=== PATIENT | male | born 1945 | race Caucasian/White ===

== ENCOUNTER 2019-06-23 20:46 | Inpatient (IN) | payer OTHER ==
[~2019-06-23] VITALS: Ht 180.3 cm; Wt 102.5 kg
[2019-06-23] MEDS ORDERED: IV NORMAL SALINE 1000ML BAG 1,000 ML IV ONE (21:00)
[2019-06-23 21:07] LABS: AMPHETAMINE/METHAMPHETAMINE NEG (NEG); BARBITURATES NEG (NEG); BENZODIAZEPINES NEG (NEG); CANNABINOIDS NEG (NEG); COCAINE NEG (NEG); METHADONE NEG (NEG); OPIATES NEG (NEG); PHENCYCLIDINE NEG (NEG)
[2019-06-23 21:13] LABS: BASO % 1 % (0-3); EOS % 1 % (0-3); HEMATOCRIT 39.3 % (39.0-53.0); HEMOGLOBIN 13.2 g/dL (13.0-17.5); LYMPH # 0.5 x10^3/uL (1.0-4.8); LYMPH % 7 % (24-48); MEAN CORPUSCULAR HEMOGLOBIN 30 pg (25-35); MEAN CORPUSCULAR HGB CONC 34 g/dL (31-37); MEAN CORPUSCULAR VOLUME 91 fL (79-100); MONO # 0.3 x10^3/uL (0.0-1.1); MONO % 4 % (0-9); NEUT # 6.3 x10^3/uL (1.8-7.7); NEUT % 88 % (31-73); PLATELET COUNT 191 x10^3/uL (140-400); RED BLOOD COUNT 4.34 x10^6/uL (4.30-5.70); RED CELL DISTRIBUTION WIDTH 14.3 % (11.5-14.5); WHITE BLOOD COUNT 7.1 x10^3/uL (4.0-11.0)
[2019-06-23 21:23] LABS: CALCIUM 9.4 mg/dL (8.5-10.1); CREATININE 1.5 mg/dL (0.7-1.3); GFR 45.7
[2019-06-23 21:29] LABS: ALBUMIN 4.3 g/dL (3.4-5.0); ALBUMIN/GLOBULIN RATIO 1.5 (1.0-1.7); TOTAL BILIRUBIN 0.5 mg/dL (0.2-1.0); TOTAL PROTEIN 7.1 g/dL (6.4-8.2)
--- NOTE | 2019-06-23 21:33 | PHYS DOC ---
Past Medical History Past Medical History: Anxiety, Depression Adult General Chief Complaint Chief Complaint: OVERDOSE HPI HPI Patient is a 73-year-old male who presents via EMS secondary to an intentional overdose. Patient took fifty 50 mg tablets of trazodone in an attempt to harm hi mself. He states he and his have been arguing a lot lately. EMS states that the patient vomited in route. Patient denies any other medication ingestion.[] Review of Systems Review of Systems Constitutional: Denies fever or chills [] Eyes: Denies change in visual acuity, redness, or eye pain [] HENT: Denies nasal congestion or sore throat [] Respiratory: Denies cough or shortness of breath [] Cardiovascular: No additional information not addressed in HPI [] GI: Per history of present illness[] : Denies dysuria or hematuria [] Musculoskeletal: Denies back pain or joint pain [] Integument: Denies rash or skin lesions [] Neurologic: Denies headache, focal weakness or sensory changes [] Endocrine: Denies polyuria or polydipsia [] All other systems were reviewed and found to be within normal limits, except as documented in this note. Current Medications Current Medications Current Medications Medications (Trade) Dose Ordered Sig/Moshe Start Time Stop Time Status Last Admin Dose Admin Sodium Chloride 1,000 ml @ 1,000 mls/hr 1X ONCE 06/23/19 21:00 06/23/19 21:59 06/23/19 21:10 1,000 MLS/HR Allergies Allergies Allergies Coded Allergies Type Severity Reaction Last Updated Verified No Known Drug Allergies 06/23/19 No Physical Exam Physical Exam Constitutional: Well developed, well nourished, disheveled and acutely ill, covered in vomitus. [] HENT: Normocephalic, atraumatic, bilateral external ears normal, oropharynx moist, no oral exudates, nose normal. [] Eyes: PERRLA, EOMI, conjunctiva normal, no discharge. [] Neck: Normal range of motion, no tenderness, supple, no stridor. [] Cardiovascular:Heart rate regular rhythm, no murmur [] Lungs & Thorax: Bilateral breath sounds clear to auscultation [] Abdomen: Bowel sounds normal, soft, no tenderness, no masses, no pulsatile masses. [] Skin: Warm, dry, no erythema, no rash. [] Back: No tenderness, no CVA tenderness. [] Extremities: No tenderness, no cyanosis, no clubbing, ROM intact, no edema. [] Neurologic: Alert and oriented X 3, normal motor function, normal sensory function, no focal deficits noted. [] Psychologic: Depressed. [] Current Patient Data Lab Values Laboratory Tests Test 06/23/19 20:50 06/23/19 21:00 Urine Opiates Screen Neg (NEG) Urine Methadone Screen Neg (NEG) Urine Barbiturates Neg (NEG) Urine Phencyclidine Screen Neg (NEG) Urine Amphetamine/Methamphetamine Neg (NEG) Urine Benzodiazepines Screen Neg (NEG) Urine Cocaine Screen Neg (NEG) Urine Cannabinoids Screen Neg (NEG) Urine Ethyl Alcohol Neg (NEG) Sodium Level 146 mmol/L (136-145) H Potassium Level 4.0 mmol/L (3.5-5.1) Chloride Level 108 mmol/L (98-107) H Carbon Dioxide Level 28 mmol/L (21-32) Anion Gap 10 (6-14) Blood Urea Nitrogen 20 mg/dL (8-26) Creatinine 1.5 mg/dL (0.7-1.3) H Estimated GFR (Cockcroft-Gault) 45.7 BUN/Creatinine Ratio 13 (6-20) Glucose Level 183 mg/dL (70-99) H Calcium Level 9.4 mg/dL (8.5-10.1) Magnesium Level 2.0 mg/dL (1.8-2.4) Total Bilirubin 0.5 mg/dL (0.2-1.0) Aspartate Amino Transferase (AST) 34 U/L (15-37) Alanine Aminotransferase (ALT) 32 U/L (16-63) Alkaline Phosphatase 42 U/L (46-116) L Total Protein 7.1 g/dL (6.4-8.2) Albumin 4.3 g/dL (3.4-5.0) Albumin/Globulin Ratio 1.5 (1.0-1.7) Lipase 711 U/L (73-393) H Ethyl Alcohol Level < 10 mg/dL (0-10) Laboratory Tests 06/23/19 21:00 EKG EKG [] Interpretation Time: EKG: Sinus arrhythmia no obvious ischemia rate of 90 Radiology/Procedures Radiology/Procedures [] Course & Med Decision Making Course & Med Decision Making Pertinent Labs and Imaging studies reviewed. (See chart for details) [ED course: Evaluation reveals a very ill 73-year-old male who took a large quantity of trazodone. Patient was given IV fluids EKG initially did not show prolonged QT we will admit to the ICU for close observation.] Dragon Disclaimer Dragon Disclaimer This electronic medical record was generated, in whole or in part, using a voice recognition dictation system. Departure Departure Impression: Primary Impression: Overdose of drug Disposition: 09 ADMITTED INPATIENT Admitting Physician: FRANCINE Condition: GUARDED Referrals: SHEREE HUMPHRIES (PCP) Problem Qualifiers Primary Impression: Overdose of drug Encounter type: initial encounter Injury intent: intentional self-harm Qualified Codes: T50.902A - Poisoning by unspecified drugs, medicaments and biological substances, intentional self-harm, initial encounter CARROL ARTEAGA DO Jun 23, 2019 21:33
[2019-06-23] MEDS ORDERED: ONDANSETRON PF 4 MG/2 ML VIAL. IV PRN (21:45)
[2019-06-23 22:00] LABS: % BANDS 1 % (0-9); % EOS 1 % (0-5); % LYMPHS 8 % (24-48); % MONOS 6 % (0-10); % SEGS 84 % (35-66); PLT ESTIMATE ADEQUATE (ADEQUATE)
[2019-06-23] MEDS: IV NORMAL SALINE 1000ML BAG 1,000 ML IV SCH (22:10)
[2019-06-23 23:45] VITALS: BP 130/64
--- NOTE | 2019-06-23 23:45 | NUR ---
The patient, FANTASMA STEPHENS, 73 y/o, M admitted by BRANDO MORIN III, DO, was given written information regarding hospital policies, unit procedures and contact persons. Valuables were checked and left with the RN. Pt is calm and resting comfortably. Will continue to monitor
[2019-06-24] VITALS (17 sets, daily range): BP systolic 93–166; BP diastolic 46–86
[2019-06-24] MEDS ORDERED: TRAZ-118 PO ×2 (01:28→01:29)
[2019-06-24] MEDS: IV NORMAL SALINE 1000ML BAG 1,000 ML IV SCH ×3 (04:17→17:17)
[2019-06-24 05:28] LABS: BASO % 1 % (0-3); EOS % 0 % (0-3); HEMATOCRIT 36.3 % (39.0-53.0); HEMOGLOBIN 12.1 g/dL (13.0-17.5); LYMPH # 0.9 x10^3/uL (1.0-4.8); LYMPH % 14 % (24-48); MEAN CORPUSCULAR HEMOGLOBIN 30 pg (25-35); MEAN CORPUSCULAR HGB CONC 33 g/dL (31-37); MEAN CORPUSCULAR VOLUME 91 fL (79-100); MONO # 0.5 x10^3/uL (0.0-1.1); MONO % 7 % (0-9); NEUT # 5.3 x10^3/uL (1.8-7.7); NEUT % 78 % (31-73); PLATELET COUNT 189 x10^3/uL (140-400); RED BLOOD COUNT 4.01 x10^6/uL (4.30-5.70); RED CELL DISTRIBUTION WIDTH 14.4 % (11.5-14.5); WHITE BLOOD COUNT 6.7 x10^3/uL (4.0-11.0)
[2019-06-24 05:34] LABS: ALBUMIN 3.2 g/dL (3.4-5.0); ALBUMIN/GLOBULIN RATIO 1.4 (1.0-1.7); CALCIUM 8.2 mg/dL (8.5-10.1); CREATININE 1.4 mg/dL (0.7-1.3); GFR 49.5; POTASSIUM 3.9 mmol/L (3.5-5.1); TOTAL BILIRUBIN 0.5 mg/dL (0.2-1.0); TOTAL PROTEIN 5.5 g/dL (6.4-8.2)
--- NOTE | 2019-06-24 06:22 | EKG ---
[facility] [address] [place] [address] Test Date: 2019-06-23 Test Time: 21:04:53 Pat Name: FANTASMA STEPHENS Department: Room: 108 1 Gender: M Rn Women Services: : 1945 Requested By: CARROL ARTEAGA Order Number: [id number] Reading MD: Michael Yi MD Measurements Intervals [place] Rate: 91 P: AR: QRS: 30 QRSD: 96 T: 18 QT: 406 QTc: 501 Interpretive Statements ATRIAL FIBRILLATION WITH CONTROLLED VENTRICULAR RESPONSE NON-SPECIFIC ST/T CHANGES Electronically Signed On 06-30-2019 11:36:24 CDT by Michael Yi MD
[2019-06-24] MEDS: LIDOCAINE (700MG/PATCH) PATCH. TD SCH (08:58)
--- NOTE | 2019-06-24 09:01 | EKG ---
[facility] [address] [place] [address] Test Date: 2019-06-24 Test Time: 08:48:20 Pat Name: FANTASMA STEPHENS Department: Room: 108 1 Gender: M Bus Monitor: : 1945 Requested By: CARROL ARTEAGA Order Number: [id number] Reading MD: Michael Yi MD Measurements Intervals [place] Rate: 63 P: 66 RI: 210 QRS: 41 QRSD: 94 T: 0 QT: 446 QTc: 460 Interpretive Statements SINUS RHYTHM Electronically Signed On 06-30-2019 11:38:02 CDT by Michael Yi MD
[2019-06-24 13:19] LABS: FREE T4 0.67 ng/dL (0.76-1.46); THYROID STIM HORMONE (TSH) 0.726 uIU/mL (0.358-3.74)
--- NOTE | 2019-06-24 13:26 | HP ---
ADMIT DATE: 06/23/2019 CHIEF COMPLAINT: Overdose. HISTORY OF PRESENT ILLNESS: The patient is a pleasant 73-year-old male, who was arguing with his . Then, he took a bottle of trazodone in an attempt to harm himself. I discussed the case with ER physician. We admitted the patient to the ICU. He is now starting to wake up. We are going to have the PAT team to evaluate him. We suspect he will go to the psychiatric inpatient unit tomorrow if he is stable. PAST MEDICAL HISTORY: Depression and anxiety and his thinks he may have dementia, although not sure. ALLERGIES: None. FAMILY HISTORY: Diabetes. SOCIAL HISTORY: He is retired. He does not drink, smoke or take drugs. He is . MEDICATIONS: Reviewed, please refer to the MRAD. REVIEW OF SYSTEMS: GENERAL: No history of weight change, weakness or fevers. SKIN: No bruising, hair changes or rashes. EYES: No blurred, double or loss of vision. NOSE AND THROAT: No history of nosebleeds, hoarseness or sore throat. HEART: No history of palpitations, chest pain or shortness of breath on exertion. LUNGS: Denies cough, hemoptysis, wheezing or shortness of breath. GASTROINTESTINAL: Denies changes in appetite, nausea, vomiting, diarrhea or constipation. GENITOURINARY: No history of frequency, urgency, hesitancy or nocturia. NEUROLOGIC: Denies history of numbness, tingling, tremor or weakness. PSYCHIATRIC: No history of panic, anxiety or depression. ENDOCRINE: No history of heat or cold intolerance, polyuria or polydipsia. EXTREMITIES: Denies muscle weakness, joint pain, pain on walking or stiffness. PHYSICAL EXAMINATION: VITALS: Within normal limits and are stable. GENERAL: No apparent distress. Alert and oriented. HEENT: Head is normocephalic, atraumatic, pupils were equally round and reactive to light and accommodation. NECK: Supple, no JVD, no thyromegaly was noted. LUNGS: Clear to auscultation in all lung herrera without rhonchi or wheezing. HEART: RRR, S1, S2 present. Peripheral pulses intact, no obvious murmurs were noted. ABDOMEN: Soft, nontender. Positive bowel sounds no organomegaly, normal bowel sounds. EXTREMITIES: Without any cyanosis, clubbing, or edema. Pedal pulses intact, Homans sign is negative. NEUROLOGIC: Normal speech, normal tone. A & O x3, moves all extremities, no obvious focal deficits. PSYCHIATRIC: Normal affect, normal mood. Stable. SKIN: No ulcerations or rashes, good skin turgor, no jaundice. VASCULAR: Good capillary refill, neurovascular bundle appears to be intact. LABORATORY DATA: Hematology is normal. Electrolytes: Sodium 146, potassium 3.9, chloride 112, and glucose 111. ASSESSMENT AND PLAN: Ingestion secondary to suicide attempt. The patient has been admitted. We are following him closely in the Intensive Care Unit. The half-life of trazodone is about 10 hours, so we will take about 50 hours to get 97% out of blood stream. Continue other home medicines. Psychiatric assessment team evaluation. DVT prophylaxis. Full code. BRANDO MORIN DO DR: BABAR/shimon JOB#: [id number] / [id number]
[2019-06-24] MEDS ORDERED: METO-269 PO (15:29)
--- NOTE | 2019-06-24 15:31 | PDOC2 ---
NEUROLOGY CONSULT Date of Admission Date of Admission DATE: 06/24/19 TIME: 15:17 Reason for Consult Reason for Consult: IMPRESSION: Drug overdose. Metabolic encephalopathy. Memory loss. DM? HTN. Hypotension events. Dementia? Depression? Anxiety. Obesity. RECOMMENDATIONS/PLAN: Lift support in ICU. Detoxication treatment. EEG. Lab: see orders. Discussed with his at bedside in ICU on 06/24/19. HISTORY OF THE PRESENT ILLNESS: Patient is a 73-year-old male patient with some psychiatric problems was brought to the ER of [facility] by EMS secondary to an intentional overdose. EMS stated that the patient vomited in route. Per ER documentation, he took fifty 50 mg tablets of Trazodone as an attempt to harm himself. Patient denies any other medication ingestion.He stated he and his have been arguing a lot lately. His suspect that he may have dementia. PAST MEDICAL HISTORY: Depression and anxiety. Questionable dementia. PAST SURGERY HISTORY: No major surgery recently. ALLERGIES: NKDA FAMILY HISTORY: Diabetes. MEDICATIONS: Refer to [facility] SOCIAL HISTORY: Lives at home. Denies smoking, drinking, and illicit drug use. REVIEW OF SYSTEMS: Constitutional: No malnutrition, weight loss, cachexia. Head: No traumatic brain or head injury. Skin: No edema, or rash. Ear: No infection. Eyes: No vision loss or color blindness. Nose: No bleeding or purulent discharges. Hearing: Hearing decrease. Neck: No injury. Cardiac: HTN. Pulmonary: No COPD. GI: No GI ulcer, GI bleeding. Urinary/genital: No dysuria, incontinence, urinary retention. Endocrinologic: Obesity. Skeletomuscular: No muscular atrophy. Neurological: see HP. Psychiatric: Denies drug use/abuse. Otherwise, not [id number] review of systems. PHYSICAL EXAMINATION: General appearance is in subacute distress. HEENT: Normocephalic and nontraumatic. Eyes, nose, ears, and throat are unremarkable. Neck is supple. No lymphadenopathy. No crepitus. Cardiovascular: S1, S2, regular rate and rhythm. Pulmonary: Relative clear to auscultation bilaterally. Abdomen: Bowel sounds are positive. Extremities: No rash, lesions, or edema. No restriction of range of motion NEUROLOGICAL EXAMINATION: Drowsiness. Not fully oriented to time, but knew place and person. PERRL. EOMI. CN: no focal findings. Muscle tone: within normal. Muscle strength: 5- DTR: 1-2 Plantar reflex: Neutral response bilaterally Gait: not examined in bed. Sensory exam: no abnormal findings. No acute cerebellar signs elicited. F-T-N test fine. Current Medications Current Medications Current Medications Sodium Chloride 1,000 ml @ 1,000 mls/hr 1X ONCE IV Last administered on 06/23/19at 21:10; Start 06/23/19 at 21:00; Stop 06/23/19 at 21:59; Status DC Ondansetron HCl (Zofran) 4 mg PRN Q8HRS PRN IV NAUSEA/VOMITING; Start 06/23/19 at 21:45; Stop 06/24/19 at 21:44 Sodium Chloride 1,000 ml @ 150 mls/hr Q6H40M IV Last administered on 06/24/19at 10:59; Start 06/23/19 at 21:45; Stop 06/24/19 at 21:44 Lidocaine (Lidoderm) 1 patch DAILY TD Last administered on 06/24/19at 08:58; Start 06/24/19 at 09:00 Miscellaneous (Lidoderm Patch Removal) 1 ea QHS MC ; Start 06/24/19 at 21:00 Active Scripts Active Reported Trazodone Hcl 50 Mg Tablet 100 Mg PO HS PRN 30 Days Trazodone Hcl 50 Mg Tablet 50 Mg PO HS PRN 30 Days Allergies Allergies: Allergies Coded Allergies Type Severity Reaction Last Updated Verified No Known Drug Allergies 06/23/19 No ROS Review of System The patient denies any associated fevers, chills, headache, ear pain, rhinorrhea, sore throat, stiff neck, productive cough, chest pain, shortness of breath, back or flank pain, abdominal pain, nausea, vomiting, diarrhea, constipation, dysuria, rash, numbness, weakness, tingling, incontinence, difficulty ambulating, or diaphoresis. Physical Exam Physical Exam General: Well developed, well nourished, no acute distress, well appearing HEENT: Pupils equally round and reactive to light, EOMI, no discharge, normal conjunctiva Neck: Supple, no nuchal rigidity, no JVD, trachea midline, no tenderness Cardiac: RRR, no murmurs, no gallops, no rubs Chest/Lungs: CTAB, no wheeze, no rhonchi, no crackles Abdomen: soft, non-distended, no guarding, no peritoneal signs, non-tender Back: No tenderness Extremities: no edema, pulses intact, non-tender,capillary refill <3 sec bilateral upper and lower extremities, Neuro: Alert and oriented x 4, no focal deficits, normal speech Vitals Vitals: Vital Signs Date Time Temp Pulse Resp B/P (MAP) Pulse Ox O2 Delivery O2 Flow Rate FiO2 06/24/19 14:00 57 20 166/80 (108) 95 Room Air 06/24/19 12:00 98.0 98.0 Labs Labs Laboratory Tests Test 06/23/19 20:50 06/23/19 21:00 06/24/19 05:00 Urine Opiates Screen Neg (NEG) Urine Methadone Screen Neg (NEG) Urine Barbiturates Neg (NEG) Urine Phencyclidine Screen Neg (NEG) Urine Amphetamine/Methamphetamine Neg (NEG) Urine Benzodiazepines Screen Neg (NEG) Urine Cocaine Screen Neg (NEG) Urine Cannabinoids Screen Neg (NEG) Urine Ethyl Alcohol Neg (NEG) White Blood Count 7.1 x10^3/uL (4.0-11.0) 6.7 x10^3/uL (4.0-11.0) Red Blood Count 4.34 x10^6/uL (4.30-5.70) 4.01 x10^6/uL (4.30-5.70) Hemoglobin 13.2 g/dL (13.0-17.5) 12.1 g/dL (13.0-17.5) Hematocrit 39.3 % (39.0-53.0) 36.3 % (39.0-53.0) Mean Corpuscular Volume 91 fL (79-100) 91 fL (79-100) Mean Corpuscular Hemoglobin 30 pg (25-35) 30 pg (25-35) Mean Corpuscular Hemoglobin Concent 34 g/dL (31-37) 33 g/dL (31-37) Red Cell Distribution Width 14.3 % (11.5-14.5) 14.4 % (11.5-14.5) Platelet Count 191 x10^3/uL (140-400) 189 x10^3/uL (140-400) Neutrophils (%) (Auto) 88 % (31-73) 78 % (31-73) Lymphocytes (%) (Auto) 7 % (24-48) 14 % (24-48) Monocytes (%) (Auto) 4 % (0-9) 7 % (0-9) Eosinophils (%) (Auto) 1 % (0-3) 0 % (0-3) Basophils (%) (Auto) 1 % (0-3) 1 % (0-3) Neutrophils # (Auto) 6.3 x10^3/uL (1.8-7.7) 5.3 x10^3/uL (1.8-7.7) Lymphocytes # (Auto) 0.5 x10^3/uL (1.0-4.8) 0.9 x10^3/uL (1.0-4.8) Monocytes # (Auto) 0.3 x10^3/uL (0.0-1.1) 0.5 x10^3/uL (0.0-1.1) Eosinophils # (Auto) 0.0 x10^3/uL (0.0-0.7) 0.0 x10^3/uL (0.0-0.7) Basophils # (Auto) 0.0 x10^3/uL (0.0-0.2) 0.0 x10^3/uL (0.0-0.2) Segmented Neutrophils % 84 % (35-66) Band Neutrophils % 1 % (0-9) Lymphocytes % 8 % (24-48) Monocytes % 6 % (0-10) Eosinophils % 1 % (0-5) Platelet Estimate Adequate (ADEQUATE) Sodium Level 146 mmol/L (136-145) 146 mmol/L (136-145) Potassium Level 4.0 mmol/L (3.5-5.1) 3.9 mmol/L (3.5-5.1) Chloride Level 108 mmol/L (98-107) 112 mmol/L (98-107) Carbon Dioxide Level 28 mmol/L (21-32) 26 mmol/L (21-32) Anion Gap 10 (6-14) 8 (6-14) Blood Urea Nitrogen 20 mg/dL (8-26) 16 mg/dL (8-26) Creatinine 1.5 mg/dL (0.7-1.3) 1.4 mg/dL (0.7-1.3) Estimated GFR (Cockcroft-Gault) 45.7 49.5 BUN/Creatinine Ratio 13 (6-20) 11 (6-20) Glucose Level 183 mg/dL (70-99) 111 mg/dL (70-99) Calcium Level 9.4 mg/dL (8.5-10.1) 8.2 mg/dL (8.5-10.1) Magnesium Level 2.0 mg/dL (1.8-2.4) Total Bilirubin 0.5 mg/dL (0.2-1.0) 0.5 mg/dL (0.2-1.0) Aspartate Amino Transf (AST/SGOT) 34 U/L (15-37) 25 U/L (15-37) Alanine Aminotransferase (ALT/SGPT) 32 U/L (16-63) 24 U/L (16-63) Alkaline Phosphatase 42 U/L (46-116) 36 U/L (46-116) Total Protein 7.1 g/dL (6.4-8.2) 5.5 g/dL (6.4-8.2) Albumin 4.3 g/dL (3.4-5.0) 3.2 g/dL (3.4-5.0) Albumin/Globulin Ratio 1.5 (1.0-1.7) 1.4 (1.0-1.7) Lipase 711 U/L (73-393) Ethyl Alcohol Level < 10 mg/dL (0-10) Thyroid Stimulating Hormone (TSH) 0.726 uIU/mL (0.358-3.74) Free Thyroxine 0.67 ng/dL (0.76-1.46) Laboratory Tests Test 06/23/19 20:50 06/23/19 21:00 06/24/19 05:00 Urine Opiates Screen Neg (NEG) Urine Methadone Screen Neg (NEG) Urine Barbiturates Neg (NEG) Urine Phencyclidine Screen Neg (NEG) Urine Amphetamine/Methamphetamine Neg (NEG) Urine Benzodiazepines Screen Neg (NEG) Urine Cocaine Screen Neg (NEG) Urine Cannabinoids Screen Neg (NEG) Urine Ethyl Alcohol Neg (NEG) White Blood Count 7.1 x10^3/uL (4.0-11.0) 6.7 x10^3/uL (4.0-11.0) Red Blood Count 4.34 x10^6/uL (4.30-5.70) 4.01 x10^6/uL (4.30-5.70) Hemoglobin 13.2 g/dL (13.0-17.5) 12.1 g/dL (13.0-17.5) Hematocrit 39.3 % (39.0-53.0) 36.3 % (39.0-53.0) Mean Corpuscular Volume 91 fL (79-100) 91 fL (79-100) Mean Corpuscular Hemoglobin 30 pg (25-35) 30 pg (25-35) Mean Corpuscular Hemoglobin Concent 34 g/dL (31-37) 33 g/dL (31-37) Red Cell Distribution Width 14.3 % (11.5-14.5) 14.4 % (11.5-14.5) Platelet Count 191 x10^3/uL (140-400) 189 x10^3/uL (140-400) Neutrophils (%) (Auto) 88 % (31-73) 78 % (31-73) Lymphocytes (%) (Auto) 7 % (24-48) 14 % (24-48) Monocytes (%) (Auto) 4 % (0-9) 7 % (0-9) Eosinophils (%) (Auto) 1 % (0-3) 0 % (0-3) Basophils (%) (Auto) 1 % (0-3) 1 % (0-3) Neutrophils # (Auto) 6.3 x10^3/uL (1.8-7.7) 5.3 x10^3/uL (1.8-7.7) Lymphocytes # (Auto) 0.5 x10^3/uL (1.0-4.8) 0.9 x10^3/uL (1.0-4.8) Monocytes # (Auto) 0.3 x10^3/uL (0.0-1.1) 0.5 x10^3/uL (0.0-1.1) Eosinophils # (Auto) 0.0 x10^3/uL (0.0-0.7) 0.0 x10^3/uL (0.0-0.7) Basophils # (Auto) 0.0 x10^3/uL (0.0-0.2) 0.0 x10^3/uL (0.0-0.2) Segmented Neutrophils % 84 % (35-66) Band Neutrophils % 1 % (0-9) Lymphocytes % 8 % (24-48) Monocytes % 6 % (0-10) Eosinophils % 1 % (0-5) Platelet Estimate Adequate (ADEQUATE) Sodium Level 146 mmol/L (136-145) 146 mmol/L (136-145) Potassium Level 4.0 mmol/L (3.5-5.1) 3.9 mmol/L (3.5-5.1) Chloride Level 108 mmol/L (98-107) 112 mmol/L (98-107) Carbon Dioxide Level 28 mmol/L (21-32) 26 mmol/L (21-32) Anion Gap 10 (6-14) 8 (6-14) Blood Urea Nitrogen 20 mg/dL (8-26) 16 mg/dL (8-26) Creatinine 1.5 mg/dL (0.7-1.3) 1.4 mg/dL (0.7-1.3) Estimated GFR (Cockcroft-Gault) 45.7 49.5 BUN/Creatinine Ratio 13 (6-20) 11 (6-20) Glucose Level 183 mg/dL (70-99) 111 mg/dL (70-99) Calcium Level 9.4 mg/dL (8.5-10.1) 8.2 mg/dL (8.5-10.1) Magnesium Level 2.0 mg/dL (1.8-2.4) Total Bilirubin 0.5 mg/dL (0.2-1.0) 0.5 mg/dL (0.2-1.0) Aspartate Amino Transf (AST/SGOT) 34 U/L (15-37) 25 U/L (15-37) Alanine Aminotransferase (ALT/SGPT) 32 U/L (16-63) 24 U/L (16-63) Alkaline Phosphatase 42 U/L (46-116) 36 U/L (46-116) Total Protein 7.1 g/dL (6.4-8.2) 5.5 g/dL (6.4-8.2) Albumin 4.3 g/dL (3.4-5.0) 3.2 g/dL (3.4-5.0) Albumin/Globulin Ratio 1.5 (1.0-1.7) 1.4 (1.0-1.7) Lipase 711 U/L (73-393) Ethyl Alcohol Level < 10 mg/dL (0-10) Thyroid Stimulating Hormone (TSH) 0.726 uIU/mL (0.358-3.74) Free Thyroxine 0.67 ng/dL (0.76-1.46) JAMIE GRIMALDO MD Jun 24, 2019 15:31
[2019-06-24] MEDS ORDERED: ATOR40TA59 PO (15:35)
[2019-06-24] MEDS ORDERED: TAMS0.4C97 PO (15:35)
[2019-06-24] MEDS ORDERED: FENO145T30 PO (15:37)
--- NOTE | 2019-06-24 16:23 | RAD ---
PQRS Compliance Statement: One or more of the following individualized dose reduction techniques were utilized for this examination: 1. Automated exposure control 2. Adjustment of the mA and/or kV according to patient size 3. Use of iterative reconstruction technique CT head without contrast 06/24/2019 3:16 PM INDICATION: Memory loss COMPARISON: None available TECHNIQUE: Multiple axial CT images of the head were obtained from skull base through the vertex without intravenous contrast. FINDINGS: Head: Ventricles, sulci and basal cisterns are within normal limits. Low-attenuation in the periventricular white matter is suggestive of chronic small vessel ischemic changes. Remote lacunar infarct in the left putamen. There is no hydrocephalus. Nathan-white matter differentiation is normal. There is no acute intracranial hemorrhage. There is no mass, mass effect or midline shift. Posterior fossa is normal in appearance. Visualized portions of the orbits are normal. Paranasal sinuses are well aerated. Mastoid air cells are well aerated. Scalp and calvaria are normal. IMPRESSION: No acute intracranial hemorrhage. Low-attenuation in the periventricular white matter is suggestive of chronic small vessel ischemic changes. There is a remote lacunar infarct in the left putamen measuring 7 mm. Electronically signed by: Shy Smith MD (06/24/2019 4:21 PM) [facility]
[2019-06-24] MEDS: PATCH REMOVAL. MC SCH (21:36)
[2019-06-25 03:42] VITALS: BP 126/60
[2019-06-25 05:06] LABS: BASO % 1 % (0-3); EOS # 0.1 x10^3/uL (0.0-0.7); EOS % 2 % (0-3); HEMATOCRIT 35.5 % (39.0-53.0); HEMOGLOBIN 11.9 g/dL (13.0-17.5); LYMPH # 1.4 x10^3/uL (1.0-4.8); LYMPH % 27 % (24-48); MEAN CORPUSCULAR HEMOGLOBIN 31 pg (25-35); MEAN CORPUSCULAR HGB CONC 34 g/dL (31-37); MEAN CORPUSCULAR VOLUME 91 fL (79-100); MONO # 0.4 x10^3/uL (0.0-1.1); MONO % 8 % (0-9); NEUT # 3.1 x10^3/uL (1.8-7.7); NEUT % 62 % (31-73); PLATELET COUNT 170 x10^3/uL (140-400); RED CELL DISTRIBUTION WIDTH 14.6 % (11.5-14.5)
[2019-06-25 05:25] LABS: ALBUMIN 3.1 g/dL (3.4-5.0); ALBUMIN/GLOBULIN RATIO 1.3 (1.0-1.7); CALCIUM 8.5 mg/dL (8.5-10.1); CREATININE 1.5 mg/dL (0.7-1.3); GFR 45.7; POTASSIUM 3.7 mmol/L (3.5-5.1); TOTAL BILIRUBIN 0.3 mg/dL (0.2-1.0); TOTAL PROTEIN 5.4 g/dL (6.4-8.2)
[2019-06-25 07:00] VITALS: BP 92/74
--- NOTE | 2019-06-25 08:24 | PDOC ---
PROGRESS NOTES History of Present Illness History of Present Illness ASSESSMENT Ingestion //suicide attempt. took fifty 50 mg tablets of Trazodone as an attempt to harm himself. // he may have dementia. Acute toxic metabiloic encephalopathy bradycardia morbid obesity major depression EEG is a borderline study for the awake, drowsy, and sleep states. No focal, lateralizing, specific epileptiform discharge or electrographic seizure is seen. admitted. home medicines. Psychiatric assessment team evaluation. DVT prophylaxis. Full code. tele cardiology consult hold BB TTE TSH placement needed PT/OT 37 min pt exam, chart review, > 50% of time spent with exam, chart review, pt care coordination Vitals Vitals Vital Signs Date Time Temp Pulse Resp B/P (MAP) Pulse Ox O2 Delivery O2 Flow Rate FiO2 06/25/19 07:00 97.6 51 18 92/74 (80) 96 Room Air 97.6 Physical Exam Physical Exam NECK: Supple, no JVD, no thyromegaly was noted. LUNGS: Clear to auscultation in all lung herrera without rhonchi or wheezing. HEART: RRR, S1, S2 present. Peripheral pulses intact, no obvious murmurs were noted. ABDOMEN: Soft, nontender. Positive bowel sounds no organomegaly, normal bowel sounds. EXTREMITIES: Without any cyanosis, clubbing, or edema. Pedal pulses intact, Homans sign is negative. NEUROLOGIC: Normal speech, normal tone. A & O x3, moves all extremities, no obvious focal deficits. PSYCHIATRIC: Normal affect, normal mood. Stable. SKIN: No ulcerations or rashes, good skin turgor, no jaundice. VASCULAR: Good capillary refill, neurovascular bundle appears to be intact. General: Alert, Oriented X3, Cooperative, No acute distress Heart: Regular rate, Normal S1 Lungs: Clear Abdomen: Normal bowel sounds, Soft, No tenderness Extremities: No cyanosis Skin: No rashes Labs LABS Laboratory Tests Test 06/25/19 03:40 White Blood Count 5.0 x10^3/uL (4.0-11.0) Red Blood Count 3.90 x10^6/uL (4.30-5.70) Hemoglobin 11.9 g/dL (13.0-17.5) Hematocrit 35.5 % (39.0-53.0) Mean Corpuscular Volume 91 fL (79-100) Mean Corpuscular Hemoglobin 31 pg (25-35) Mean Corpuscular Hemoglobin Concent 34 g/dL (31-37) Red Cell Distribution Width 14.6 % (11.5-14.5) Platelet Count 170 x10^3/uL (140-400) Neutrophils (%) (Auto) 62 % (31-73) Lymphocytes (%) (Auto) 27 % (24-48) Monocytes (%) (Auto) 8 % (0-9) Eosinophils (%) (Auto) 2 % (0-3) Basophils (%) (Auto) 1 % (0-3) Neutrophils # (Auto) 3.1 x10^3/uL (1.8-7.7) Lymphocytes # (Auto) 1.4 x10^3/uL (1.0-4.8) Monocytes # (Auto) 0.4 x10^3/uL (0.0-1.1) Eosinophils # (Auto) 0.1 x10^3/uL (0.0-0.7) Basophils # (Auto) 0.0 x10^3/uL (0.0-0.2) Sodium Level 147 mmol/L (136-145) Potassium Level 3.7 mmol/L (3.5-5.1) Chloride Level 114 mmol/L (98-107) Carbon Dioxide Level 25 mmol/L (21-32) Anion Gap 8 (6-14) Blood Urea Nitrogen 15 mg/dL (8-26) Creatinine 1.5 mg/dL (0.7-1.3) Estimated GFR (Cockcroft-Gault) 45.7 BUN/Creatinine Ratio 10 (6-20) Glucose Level 97 mg/dL (70-99) Calcium Level 8.5 mg/dL (8.5-10.1) Total Bilirubin 0.3 mg/dL (0.2-1.0) Aspartate Amino Transf (AST/SGOT) 23 U/L (15-37) Alanine Aminotransferase (ALT/SGPT) 26 U/L (16-63) Alkaline Phosphatase 33 U/L (46-116) Total Protein 5.4 g/dL (6.4-8.2) Albumin 3.1 g/dL (3.4-5.0) Albumin/Globulin Ratio 1.3 (1.0-1.7) Assessment and Plan Assessmemt and Plan Problems Medical Problems: (1) Overdose of drug Status: Acute Comment Review of Relevant I have reviewed the following items zachery (where applicable) has been applied. Labs Laboratory Tests Test 06/23/19 20:50 06/23/19 21:00 06/24/19 05:00 06/25/19 03:40 Urine Opiates Screen Neg (NEG) Urine Methadone Screen Neg (NEG) Urine Barbiturates Neg (NEG) Urine Phencyclidine Screen Neg (NEG) Urine Amphetamine/Methamphetamine Neg (NEG) Urine Benzodiazepines Screen Neg (NEG) Urine Cocaine Screen Neg (NEG) Urine Cannabinoids Screen Neg (NEG) Urine Ethyl Alcohol Neg (NEG) White Blood Count 7.1 x10^3/uL (4.0-11.0) 6.7 x10^3/uL (4.0-11.0) 5.0 x10^3/uL (4.0-11.0) Red Blood Count 4.34 x10^6/uL (4.30-5.70) 4.01 x10^6/uL (4.30-5.70) 3.90 x10^6/uL (4.30-5.70) Hemoglobin 13.2 g/dL (13.0-17.5) 12.1 g/dL (13.0-17.5) 11.9 g/dL (13.0-17.5) Hematocrit 39.3 % (39.0-53.0) 36.3 % (39.0-53.0) 35.5 % (39.0-53.0) Mean Corpuscular Volume 91 fL (79-100) 91 fL (79-100) 91 fL (79-100) Mean Corpuscular Hemoglobin 30 pg (25-35) 30 pg (25-35) 31 pg (25-35) Mean Corpuscular Hemoglobin Concent 34 g/dL (31-37) 33 g/dL (31-37) 34 g/dL (31-37) Red Cell Distribution Width 14.3 % (11.5-14.5) 14.4 % (11.5-14.5) 14.6 % (11.5-14.5) Platelet Count 191 x10^3/uL (140-400) 189 x10^3/uL (140-400) 170 x10^3/uL (140-400) Neutrophils (%) (Auto) 88 % (31-73) 78 % (31-73) 62 % (31-73) Lymphocytes (%) (Auto) 7 % (24-48) 14 % (24-48) 27 % (24-48) Monocytes (%) (Auto) 4 % (0-9) 7 % (0-9) 8 % (0-9) Eosinophils (%) (Auto) 1 % (0-3) 0 % (0-3) 2 % (0-3) Basophils (%) (Auto) 1 % (0-3) 1 % (0-3) 1 % (0-3) Neutrophils # (Auto) 6.3 x10^3/uL (1.8-7.7) 5.3 x10^3/uL (1.8-7.7) 3.1 x10^3/uL (1.8-7.7) Lymphocytes # (Auto) 0.5 x10^3/uL (1.0-4.8) 0.9 x10^3/uL (1.0-4.8) 1.4 x10^3/uL (1.0-4.8) Monocytes # (Auto) 0.3 x10^3/uL (0.0-1.1) 0.5 x10^3/uL (0.0-1.1) 0.4 x10^3/uL (0.0-1.1) Eosinophils # (Auto) 0.0 x10^3/uL (0.0-0.7) 0.0 x10^3/uL (0.0-0.7) 0.1 x10^3/uL (0.0-0.7) Basophils # (Auto) 0.0 x10^3/uL (0.0-0.2) 0.0 x10^3/uL (0.0-0.2) 0.0 x10^3/uL (0.0-0.2) Segmented Neutrophils % 84 % (35-66) Band Neutrophils % 1 % (0-9) Lymphocytes % 8 % (24-48) Monocytes % 6 % (0-10) Eosinophils % 1 % (0-5) Platelet Estimate Adequate (ADEQUATE) Sodium Level 146 mmol/L (136-145) 146 mmol/L (136-145) 147 mmol/L (136-145) Potassium Level 4.0 mmol/L (3.5-5.1) 3.9 mmol/L (3.5-5.1) 3.7 mmol/L (3.5-5.1) Chloride Level 108 mmol/L (98-107) 112 mmol/L (98-107) 114 mmol/L (98-107) Carbon Dioxide Level 28 mmol/L (21-32) 26 mmol/L (21-32) 25 mmol/L (21-32) Anion Gap 10 (6-14) 8 (6-14) 8 (6-14) Blood Urea Nitrogen 20 mg/dL (8-26) 16 mg/dL (8-26) 15 mg/dL (8-26) Creatinine 1.5 mg/dL (0.7-1.3) 1.4 mg/dL (0.7-1.3) 1.5 mg/dL (0.7-1.3) Estimated GFR (Cockcroft-Gault) 45.7 49.5 45.7 BUN/Creatinine Ratio 13 (6-20) 11 (6-20) 10 (6-20) Glucose Level 183 mg/dL (70-99) 111 mg/dL (70-99) 97 mg/dL (70-99) Calcium Level 9.4 mg/dL (8.5-10.1) 8.2 mg/dL (8.5-10.1) 8.5 mg/dL (8.5-10.1) Magnesium Level 2.0 mg/dL (1.8-2.4) Total Bilirubin 0.5 mg/dL (0.2-1.0) 0.5 mg/dL (0.2-1.0) 0.3 mg/dL (0.2-1.0) Aspartate Amino Transf (AST/SGOT) 34 U/L (15-37) 25 U/L (15-37) 23 U/L (15-37) Alanine Aminotransferase (ALT/SGPT) 32 U/L (16-63) 24 U/L (16-63) 26 U/L (16-63) Alkaline Phosphatase 42 U/L (46-116) 36 U/L (46-116) 33 U/L (46-116) Total Protein 7.1 g/dL (6.4-8.2) 5.5 g/dL (6.4-8.2) 5.4 g/dL (6.4-8.2) Albumin 4.3 g/dL (3.4-5.0) 3.2 g/dL (3.4-5.0) 3.1 g/dL (3.4-5.0) Albumin/Globulin Ratio 1.5 (1.0-1.7) 1.4 (1.0-1.7) 1.3 (1.0-1.7) Lipase 711 U/L (73-393) Ethyl Alcohol Level < 10 mg/dL (0-10) Vitamin B12 Level 286 pg/mL (247-911) Thyroid Stimulating Hormone (TSH) 0.726 uIU/mL (0.358-3.74) Free Thyroxine 0.67 ng/dL (0.76-1.46) Laboratory Tests Test 06/25/19 03:40 White Blood Count 5.0 x10^3/uL (4.0-11.0) Red Blood Count 3.90 x10^6/uL (4.30-5.70) Hemoglobin 11.9 g/dL (13.0-17.5) Hematocrit 35.5 % (39.0-53.0) Mean Corpuscular Volume 91 fL (79-100) Mean Corpuscular Hemoglobin 31 pg (25-35) Mean Corpuscular Hemoglobin Concent 34 g/dL (31-37) Red Cell Distribution Width 14.6 % (11.5-14.5) Platelet Count 170 x10^3/uL (140-400) Neutrophils (%) (Auto) 62 % (31-73) Lymphocytes (%) (Auto) 27 % (24-48) Monocytes (%) (Auto) 8 % (0-9) Eosinophils (%) (Auto) 2 % (0-3) Basophils (%) (Auto) 1 % (0-3) Neutrophils # (Auto) 3.1 x10^3/uL (1.8-7.7) Lymphocytes # (Auto) 1.4 x10^3/uL (1.0-4.8) Monocytes # (Auto) 0.4 x10^3/uL (0.0-1.1) Eosinophils # (Auto) 0.1 x10^3/uL (0.0-0.7) Basophils # (Auto) 0.0 x10^3/uL (0.0-0.2) Sodium Level 147 mmol/L (136-145) Potassium Level 3.7 mmol/L (3.5-5.1) Chloride Level 114 mmol/L (98-107) Carbon Dioxide Level 25 mmol/L (21-32) Anion Gap 8 (6-14) Blood Urea Nitrogen 15 mg/dL (8-26) Creatinine 1.5 mg/dL (0.7-1.3) Estimated GFR (Cockcroft-Gault) 45.7 BUN/Creatinine Ratio 10 (6-20) Glucose Level 97 mg/dL (70-99) Calcium Level 8.5 mg/dL (8.5-10.1) Total Bilirubin 0.3 mg/dL (0.2-1.0) Aspartate Amino Transf (AST/SGOT) 23 U/L (15-37) Alanine Aminotransferase (ALT/SGPT) 26 U/L (16-63) Alkaline Phosphatase 33 U/L (46-116) Total Protein 5.4 g/dL (6.4-8.2) Albumin 3.1 g/dL (3.4-5.0) Albumin/Globulin Ratio 1.3 (1.0-1.7) Medications Current Medications Sodium Chloride 1,000 ml @ 1,000 mls/hr 1X ONCE IV Last administered on 06/23/19at 21:10; Start 06/23/19 at 21:00; Stop 06/23/19 at 21:59; Status DC Ondansetron HCl (Zofran) 4 mg PRN Q8HRS PRN IV NAUSEA/VOMITING; Start 06/23/19 at 21:45; Stop 06/24/19 at 21:44; Status DC Sodium Chloride 1,000 ml @ 150 mls/hr Q6H40M IV Last administered on 06/24/19at 17:17; Start 06/23/19 at 21:45; Stop 06/24/19 at 21:44; Status DC Lidocaine (Lidoderm) 1 patch DAILY TD Last administered on 06/24/19at 08:58; Start 06/24/19 at 09:00 Miscellaneous (Lidoderm Patch Removal) 1 ea QHS MC Last administered on 06/24/19at 21:36; Start 06/24/19 at 21:00 Active Scripts Active Reported Fenofibrate (Fenofibrate Nanocrystallized) 145 Mg Tablet 1 Tab PO DAILY Flomax (Tamsulosin Hcl) 0.4 Mg Cap.er.24h 1 Cap PO DAILY Atorvastatin Calcium 40 Mg Tablet 1 Tab PO QHS Toprol Xl (Metoprolol Succinate) 50 Mg Tab.er.24h 50 Mg PO DAILY Trazodone Hcl 50 Mg Tablet 100 Mg PO HS PRN 30 Days Trazodone Hcl 50 Mg Tablet 50 Mg PO HS PRN 30 Days Vitals/I & O Vital Sign - Last 24 Hours 06/24/19 06/24/19 06/24/19 06/24/19 10:00 11:00 12:00 12:00 Temp 98.0 98.0 Pulse 67 60 58 Resp 18 18 18 B/P (MAP) 162/67 (98) 131/56 (81) 160/86 (110) Pulse Ox 99 99 95 O2 Delivery Room Air Room Air Room Air Room Air 06/24/19 06/24/19 06/24/19 06/24/19 13:00 14:00 15:50 19:39 Temp 97.9 98.1 97.9 98.1 Pulse 54 57 61 60 Resp 18 20 17 18 B/P (MAP) 134/63 (86) 166/80 (108) 153/66 (95) 140/72 (94) Pulse Ox 95 95 97 96 O2 Delivery Room Air Room Air Room Air Room Air 06/24/19 06/24/19 06/25/19 06/25/19 20:30 23:15 03:42 07:00 Temp 98.3 97.5 97.6 98.3 97.5 97.6 Pulse 62 55 51 Resp 18 18 18 B/P (MAP) 161/77 (105) 126/60 (82) 92/74 (80) Pulse Ox 95 96 96 O2 Delivery Room Air Room Air Room Air Room Air Intake and Output 06/24/19 06/24/19 06/25/19 15:00 23:00 07:00 Intake Total 880 ml 0 ml 150 ml Output Total 750 ml 0 ml 550 ml Balance 130 ml 0 ml -400 ml FANTASMA CERDA MD Jun 25, 2019 08:24
[2019-06-25] MEDS: LIDOCAINE (700MG/PATCH) PATCH. TD SCH (09:10)
--- NOTE | 2019-06-25 10:50 | PDOC2 ---
LISE SILVA APPRENTICE PAINTER NECKTIES 06/25/19 1050: CARDIAC CONSULT DATE OF CONSULT Date of Consult DATE: 06/25/19 TIME: 10:39 REASON FOR CONSULT Reason for Consult: bradycardia REFERRING PHYSICIAN Referring Physician: Fullbright SOURCE Source: Chart review, Patient HISTORY OF PRESENT ILLNESS HISTORY OF PRESENT ILLNESS THis is a 73 yo male admitted for intentional overdose. Appears to have an arguement with his and allegedly took 50 tablets of trazodone. He does have dementia and forgetful. Consult if for bradycardia lowest at 38 and sinus. Otherwise no pauses and no symptoms. Tried to contact spouse but no answer. Discussed with RN and he has not been having any chest pain, SOA nor palpitations. No previous passing out. He has been Aox3. per staff. He is currently in EEG and he is currently asleep when I saw him over there and comfortable. His HR currently during EEG is in the 50s. I could not fully as sessed him currently due to EEG session and he is asleep. Will reeval after his EEG. PAST MEDICAL HISTORY Cardiovascular: AFIB (?), HTN, Hyperlipidemia Pulmonary: Other (TIFFANI) CENTRAL NERVOUS SYSTEM: Other (no pertinent history) Psych: Anxiety Musculoskeletal: Osteoarthritis Renal/: Benign prostatic enlarg. PAST SURGICAL HISTORY Past Surgical History: Cholecystectomy, Other (bowel surgery) FAMILY HISTORY Family History: Heart Disease SOCIAL HISTORY Smoke: No ALCOHOL: none Drugs: None Lives: with Family CURRENT MEDICATIONS CURRENT MEDICATIONS Current Medications Medications (Trade) Dose Ordered Sig/Moshe Route PRN Reason Start Time Stop Time Status Last Admin Dose Admin Miscellaneous (Lidoderm Patch Removal) 1 ea QHS 06/24/19 21:00 06/24/19 21:36 ALLERGIES ALLERGIES: Coded Allergies: No Known Drug Allergies (Unverified , 06/23/19) ROS Review of System limited, poor historian PHYSICAL EXAM PHYSICAL EXAM unable to fully assess currently as he is EEG session asleep. He is stable and comfortable during the session. Accdg to tech he has been AOx3. VITALS/I&O VITALS/I&O: Vital Signs Date Time Temp Pulse Resp B/P (MAP) Pulse Ox O2 Delivery O2 Flow Rate FiO2 06/25/19 08:00 Room Air 06/25/19 07:00 97.6 51 18 92/74 (80) 96 97.6 I & O 06/24/19 06/24/19 06/25/19 15:00 23:00 07:00 Intake Total 880 ml 0 ml 150 ml Output Total 750 ml 0 ml 550 ml Balance 130 ml 0 ml -400 ml LABS Lab: Laboratory Tests Test 06/25/19 03:40 White Blood Count 5.0 x10^3/uL (4.0-11.0) Red Blood Count 3.90 x10^6/uL (4.30-5.70) L Hemoglobin 11.9 g/dL (13.0-17.5) L Hematocrit 35.5 % (39.0-53.0) L Mean Corpuscular Volume 91 fL (79-100) Mean Corpuscular Hemoglobin 31 pg (25-35) Mean Corpuscular Hemoglobin Concent 34 g/dL (31-37) Red Cell Distribution Width 14.6 % (11.5-14.5) H Platelet Count 170 x10^3/uL (140-400) Neutrophils (%) (Auto) 62 % (31-73) Lymphocytes (%) (Auto) 27 % (24-48) Monocytes (%) (Auto) 8 % (0-9) Eosinophils (%) (Auto) 2 % (0-3) Basophils (%) (Auto) 1 % (0-3) Neutrophils # (Auto) 3.1 x10^3/uL (1.8-7.7) Lymphocytes # (Auto) 1.4 x10^3/uL (1.0-4.8) Monocytes # (Auto) 0.4 x10^3/uL (0.0-1.1) Eosinophils # (Auto) 0.1 x10^3/uL (0.0-0.7) Basophils # (Auto) 0.0 x10^3/uL (0.0-0.2) Sodium Level 147 mmol/L (136-145) H Potassium Level 3.7 mmol/L (3.5-5.1) Chloride Level 114 mmol/L (98-107) H Carbon Dioxide Level 25 mmol/L (21-32) Anion Gap 8 (6-14) Blood Urea Nitrogen 15 mg/dL (8-26) Creatinine 1.5 mg/dL (0.7-1.3) H Estimated GFR (Cockcroft-Gault) 45.7 BUN/Creatinine Ratio 10 (6-20) Glucose Level 97 mg/dL (70-99) Calcium Level 8.5 mg/dL (8.5-10.1) Total Bilirubin 0.3 mg/dL (0.2-1.0) Aspartate Amino Transferase (AST) 23 U/L (15-37) Alanine Aminotransferase (ALT) 26 U/L (16-63) Alkaline Phosphatase 33 U/L (46-116) L Total Protein 5.4 g/dL (6.4-8.2) L Albumin 3.1 g/dL (3.4-5.0) L Albumin/Globulin Ratio 1.3 (1.0-1.7) Laboratory Tests 06/25/19 03:40 Laboratory Tests 06/25/19 03:40 ASSESSMENT/PLAN ASSESSMENT/PLAN 1. Asymptomatic SB: mainly noted during sleep lowest at 38. QTc per EKG is 466 2. Trazodone overdose: stemming from underlying fight with spouse. defer to PCP. 3. HTN: controlled 4. TIFFANI?untreated 5. HLP 6. ?AFIB: this is questionable, no noted prior hx of records. 7. Dementia? encephalopathy: neurology following having EEG. Recommendations 1. He is known for not complying with his appointment. Will obtain TTE 2. Outpt event monitor is a consideration depending on his rate status as an inpt. 3. His rate is stable when awake and SR. BP is currently marginal. Agree to hold BB for now. 4. TTE and will check TSH BEA MARISCAL MD 06/25/19 2211: CARDIAC CONSULT ASSESSMENT/PLAN ASSESSMENT/PLAN Pt. seen and examined. Agree with above WEATHERIZATION FIELD TECHNICIAN note. 73 y.o with intentional overdose. No clear cardiac issues. EKG is unremarkable. Supportive care. No acute need for b-lyle. Discussed with his as well. LISE SILVA APRN Jun 25, 2019 10:50 BEA MARISCAL MD Jun 25, 2019 22:11
--- NOTE | 2019-06-25 11:39 | EEG ---
DATE OF SERVICE: 06/25/2019 EEG NUMBER: [id number]. OBJECTIVE: This is a 73-year-old male patient with history of memory loss. EEG was requested to evaluate cerebral activity. METHODS: Twenty electrodes were applied according to the international 10-20 electrode placement system. EKG monitoring, hyperventilation, intermittent photic stimulation, monopolar and bipolar montages are routinely utilized. The record was obtained on a digital system with video monitoring. FINDINGS: 1. Background: The patient was recorded in the awake, drowsy, and sleep states. The overall background amplitude is 5-10 microvolts. A posterior dominant rhythm of 8 Hz is observed. 2. Abnormalities: No specific epileptiform discharge or electrographic seizure is seen. No focal or diffuse slowing. EKG artifact noted. 3. Activation: Hyperventilation was performed with good efforts and normal response. Intermittent photic stimulation was performed with photic driving. IMPRESSION: This EEG is a borderline study for the awake, drowsy, and sleep states. No focal, lateralizing, specific epileptiform discharge or electrographic seizure is seen. JAMIE GRIMALDO MD DR: JOYCELYN/shimon JOB#: [id number] / [id number] VALERIANO
--- NOTE | 2019-06-25 11:40 | NUR ---
SW spoke with PAT team and pt is cleared and does not have SI. Pt is provided with community resources. No f/u needed.
[2019-06-25 11:59] VITALS: BP 181/69
[2019-06-25] MEDS: LISINOPRIL 10 MG TABLET PO SCH (14:08)
[2019-06-25] MEDS: FENOFIBRATE,MICRONIZED 134 MG CAPSULE PO SCH (14:08)
[2019-06-25 15:00] VITALS: BP 175/85
[2019-06-25] MEDS: hydrALAZINE 20 MG/ML VIAL. IVP PRN (15:56)
--- NOTE | 2019-06-25 16:12 | PDOC ---
PROGRESS NOTES Assessment Assessment Drug overdose. Metabolic encephalopathy. Memory loss. Dizziness. Vertigo. DM? HTN. Hypotension events. Dementia? Depression? Anxiety. Obesity. RECOMMENDATIONS/PLAN: Ortho HR and BP. Treat medical disease. Further evaluation of cognitive function as outpatient base. Discussed with his at bedside in ICU on 06/25/19. EEG on 06/25/19: Borderline study. HCT: No brain atrophy. HISTORY OF THE PRESENT ILLNESS: Patient is a 73-year-old male patient with some psychiatric problems was brought to the ER of [facility] by EMS secondary to an intentional overdose. EMS stated that the patient vomited in route. Per ER documentation, he took fifty 50 mg tablets of Trazodone as an attempt to harm himself. Patient denies any other medication ingestion.He stated he and his have been arguing a lot lately. His suspect that he may have dementia. PAST MEDICAL HISTORY: Depression and anxiety. Questionable dementia. PAST SURGERY HISTORY: No major surgery recently. ALLERGIES: NKDA FAMILY HISTORY: Diabetes. MEDICATIONS: Refer to [facility] SOCIAL HISTORY: Lives at home. Denies smoking, drinking, and illicit drug use. REVIEW OF SYSTEMS: Constitutional: No malnutrition, weight loss, cachexia. Head: No traumatic brain or head injury. Skin: No edema, or rash. Ear: No infection. Eyes: No vision loss or color blindness. Nose: No bleeding or purulent discharges. Hearing: Hearing decrease. Neck: No injury. Cardiac: HTN. Pulmonary: No COPD. GI: No GI ulcer, GI bleeding. Urinary/genital: No dysuria, incontinence, urinary retention. Endocrinologic: Obesity. Skeletomuscular: No muscular atrophy. Neurological: see HP. Psychiatric: Denies drug use/abuse. Otherwise, not [id number] review of systems. PHYSICAL EXAMINATION: General appearance is in subacute distress. HEENT: Normocephalic and nontraumatic. Eyes, nose, ears, and throat are unremarkable. Neck is supple. No lymphadenopathy. No crepitus. Cardiovascular: S1, S2, regular rate and rhythm. Pulmonary: Relative clear to auscultation bilaterally. Abdomen: Bowel sounds are positive. Extremities: No rash, lesions, or edema. No restriction of range of motion NEUROLOGICAL EXAMINATION: Awake. Oriented to time, place and person. PERRL. EOMI. CN: no focal findings. Muscle tone: within normal. Muscle strength: 5- DTR: 1-2 Plantar reflex: Neutral response bilaterally Gait: not examined in bed. Sensory exam: no abnormal findings. No acute cerebellar signs elicited. F-T-N test fine. Objective Objective Vital Signs Date Time Temp Pulse Resp B/P (MAP) Pulse Ox O2 Delivery O2 Flow Rate FiO2 06/25/19 15:56 61 175/85 06/25/19 15:00 98.0 18 97 Room Air 98.0 Intake and Output 06/25/19 07:00 Intake Total 1030 ml Output Total 1300 ml Balance -270 ml Intake Oral 1030 ml Output Urine Total 1300 ml # Voids 2 Vitals Signs Vitals VS - Last 72 Hours, by Label Date Time Temp Pulse Resp B/P (MAP) Pulse Ox O2 Delivery O2 Flow Rate FiO2 06/25/19 15:56 61 175/85 06/25/19 15:00 98.0 65 18 175/85 (115) 97 Room Air 98.0 06/25/19 14:08 63 172/84 06/25/19 11:59 97.9 64 18 181/69 (106) 98 Room Air 97.9 06/25/19 08:00 Room Air 06/25/19 07:00 97.6 51 18 92/74 (80) 96 Room Air 97.6 06/25/19 03:42 97.5 55 18 126/60 (82) 96 Room Air 97.5 06/24/19 23:15 98.3 62 18 161/77 (105) 95 Room Air 98.3 06/24/19 20:30 Room Air 06/24/19 19:39 98.1 60 18 140/72 (94) 96 Room Air 98.1 06/24/19 15:50 97.9 61 17 153/66 (95) 97 Room Air 97.9 06/24/19 14:00 57 20 166/80 (108) 95 Room Air 06/24/19 13:00 54 18 134/63 (86) 95 Room Air 06/24/19 12:00 98.0 58 18 160/86 (110) 95 Room Air 98.0 06/24/19 12:00 Room Air 06/24/19 11:00 60 18 131/56 (81) 99 Room Air 06/24/19 10:00 67 18 162/67 (98) 99 Room Air 06/24/19 08:00 97.7 71 18 144/60 (88) 99 Room Air 97.7 06/24/19 07:33 Room Air 06/24/19 07:00 53 12 101/52 (68) 97 Room Air Laboratory Laboratory Laboratory Tests Test 06/25/19 03:40 White Blood Count 5.0 x10^3/uL (4.0-11.0) Red Blood Count 3.90 x10^6/uL (4.30-5.70) Hemoglobin 11.9 g/dL (13.0-17.5) Hematocrit 35.5 % (39.0-53.0) Mean Corpuscular Volume 91 fL (79-100) Mean Corpuscular Hemoglobin 31 pg (25-35) Mean Corpuscular Hemoglobin Concent 34 g/dL (31-37) Red Cell Distribution Width 14.6 % (11.5-14.5) Platelet Count 170 x10^3/uL (140-400) Neutrophils (%) (Auto) 62 % (31-73) Lymphocytes (%) (Auto) 27 % (24-48) Monocytes (%) (Auto) 8 % (0-9) Eosinophils (%) (Auto) 2 % (0-3) Basophils (%) (Auto) 1 % (0-3) Neutrophils # (Auto) 3.1 x10^3/uL (1.8-7.7) Lymphocytes # (Auto) 1.4 x10^3/uL (1.0-4.8) Monocytes # (Auto) 0.4 x10^3/uL (0.0-1.1) Eosinophils # (Auto) 0.1 x10^3/uL (0.0-0.7) Basophils # (Auto) 0.0 x10^3/uL (0.0-0.2) Sodium Level 147 mmol/L (136-145) Potassium Level 3.7 mmol/L (3.5-5.1) Chloride Level 114 mmol/L (98-107) Carbon Dioxide Level 25 mmol/L (21-32) Anion Gap 8 (6-14) Blood Urea Nitrogen 15 mg/dL (8-26) Creatinine 1.5 mg/dL (0.7-1.3) Estimated GFR (Cockcroft-Gault) 45.7 BUN/Creatinine Ratio 10 (6-20) Glucose Level 97 mg/dL (70-99) Calcium Level 8.5 mg/dL (8.5-10.1) Total Bilirubin 0.3 mg/dL (0.2-1.0) Aspartate Amino Transf (AST/SGOT) 23 U/L (15-37) Alanine Aminotransferase (ALT/SGPT) 26 U/L (16-63) Alkaline Phosphatase 33 U/L (46-116) Total Protein 5.4 g/dL (6.4-8.2) Albumin 3.1 g/dL (3.4-5.0) Albumin/Globulin Ratio 1.3 (1.0-1.7) Medication Medications Current Medications Atorvastatin Calcium (Lipitor) 40 mg QHS PO ; Start 06/25/19 at 21:00 Fenofibrate (Lofibra) 134 mg DAILY PO Last administered on 06/25/19at 14:08; Start 06/25/19 at 14:00 Hydralazine HCl (Apresoline Inj) 10 mg PRN Q4HRS PRN IVP ELEVATED BP, SEE COMMENTS Last administered on 06/25/19at 15:56; Start 06/25/19 at 14:00 Lisinopril (Prinivil) 10 mg DAILY PO Last administered on 06/25/19at 14:08; Start 06/25/19 at 14:00 Miscellaneous (Lidoderm Patch Removal) 1 ea QHS MC Last administered on at 21:36; Start 06/24/19 at 21:00 Tamsulosin HCl (Flomax) 0.4 mg DAILY PO ; Start 06/26/19 at 09:00 Comment Review of Relevant I have reviewed the following items zachery (where applicable) has been applied. JAMIE GRIMALDO MD Jun 25, 2019 16:12
--- NOTE | 2019-06-25 17:00 | NUR ---
Patient tearful and stating he feels "dizzy." BP 156/62, HR 78, with a blood sugar of 98. Pt boosted in bed, while laying flat, pt stated he started to feel dizzy again. After being boosted, pt felt "better" and food tray placed in front of him. Will continue to monitor.
[2019-06-25 19:43] VITALS: BP 179/73
[2019-06-25] MEDS: ATORVASTATIN CALCIUM 40 MG TABLET. PO SCH (20:53)
[2019-06-25] MEDS: PATCH REMOVAL. MC SCH (20:53)
[2019-06-25 23:05] VITALS: BP 176/75
[2019-06-26 03:05] VITALS: BP 175/79
[2019-06-26 04:40] LABS: BASO # 0.1 x10^3/uL (0.0-0.2); BASO % 1 % (0-3); EOS # 0.1 x10^3/uL (0.0-0.7); EOS % 2 % (0-3); HEMATOCRIT 38.4 % (39.0-53.0); HEMOGLOBIN 12.9 g/dL (13.0-17.5); LYMPH # 1.2 x10^3/uL (1.0-4.8); LYMPH % 21 % (24-48); MEAN CORPUSCULAR HEMOGLOBIN 30 pg (25-35); MEAN CORPUSCULAR HGB CONC 34 g/dL (31-37); MEAN CORPUSCULAR VOLUME 90 fL (79-100); MONO # 0.5 x10^3/uL (0.0-1.1); MONO % 9 % (0-9); NEUT % 68 % (31-73); PLATELET COUNT 202 x10^3/uL (140-400); RED BLOOD COUNT 4.27 x10^6/uL (4.30-5.70); RED CELL DISTRIBUTION WIDTH 14.4 % (11.5-14.5); WHITE BLOOD COUNT 5.9 x10^3/uL (4.0-11.0)
[2019-06-26 05:27] LABS: ALBUMIN 3.4 g/dL (3.4-5.0); ALBUMIN/GLOBULIN RATIO 1.3 (1.0-1.7); CALCIUM 9.1 mg/dL (8.5-10.1); CREATININE 1.5 mg/dL (0.7-1.3); GFR 45.7; POTASSIUM 3.4 mmol/L (3.5-5.1); TOTAL BILIRUBIN 0.6 mg/dL (0.2-1.0)
--- NOTE | 2019-06-26 06:28 | NUR ---
Patient had two episodes of bradycardia throughout the shift, one at approximately 0525 and the other at approximately 0625. Patient was sleeping and asymptomatic during both of these episodes. Strips printed and placed in patient chart. Will pass along to day RN.
[2019-06-26 07:27] VITALS: BP 166/95
--- NOTE | 2019-06-26 08:06 | PDOC ---
PROGRESS NOTES History of Present Illness History of Present Illness discharge dx Ingestion //suicide attempt. took fifty 50 mg tablets of Trazodone as an attempt to harm himself. // may have dementia. Acute toxic metabiloic encephalopathy bradycardia morbid obesity major depression EEG is a borderline study for the awake, drowsy, and sleep states. No focal, lateralizing, specific epileptiform discharge or electrographic seizure is seen. d/w in room SW spoke with PAT team and pt is cleared and does not have SI. Pt is provided with community resources. No f/u needed. admitted. home medicines. Psychiatric assessment team evaluation. DVT prophylaxis. Full code. tele cardiology consult hold BB TTE TSH outpt mental health eval needed PT/OT 33 min pt exam, chart review d/c planning , > 50% of time spent with exam, chart review, pt care coordination Vitals Vitals Vital Signs Date Time Temp Pulse Resp B/P (MAP) Pulse Ox O2 Delivery O2 Flow Rate FiO2 06/26/19 07:27 98.7 76 16 166/95 (118) 95 Room Air 98.7 Physical Exam Physical Exam NECK: Supple, no JVD, no thyromegaly was noted. LUNGS: Clear to auscultation in all lung herrera without rhonchi or wheezing. HEART: RRR, S1, S2 present. Peripheral pulses intact, no obvious murmurs were noted. ABDOMEN: Soft, nontender. Positive bowel sounds no organomegaly, normal bowel sounds. EXTREMITIES: Without any cyanosis, clubbing, or edema. Pedal pulses intact, Homans sign is negative. NEUROLOGIC: Normal speech, normal tone. A & O x3, moves all extremities, no obvious focal deficits. PSYCHIATRIC: sad affect normal mood. Stable. SKIN: No ulcerations or rashes, good skin turgor, no jaundice. VASCULAR: Good capillary refill, neurovascular bundle appears to be intact. General: Alert, Oriented X3, Cooperative, No acute distress Heart: Regular rate, Normal S1 Lungs: Clear Abdomen: Normal bowel sounds, Soft, No tenderness, No hepatosplenomegaly Extremities: No clubbing, No cyanosis, No edema Skin: No rashes, No significant lesion Labs LABS FINDINGS: 1. Background: The patient was recorded in the awake, drowsy, and sleep states. The overall background amplitude is 5-10 microvolts. A posterior dominant rhythm of 8 Hz is observed. 2. Abnormalities: No specific epileptiform discharge or electrographic seizure is seen. No focal or diffuse slowing. EKG artifact noted. 3. Activation: Hyperventilation was performed with good efforts and normal response. Intermittent photic stimulation was performed with photic driving. IMPRESSION: This EEG is a borderline study for the awake, drowsy, and sleep states. No focal, lateralizing, specific epileptiform discharge or electrographic seizure is seen. Laboratory Tests Test 06/25/19 17:02 06/26/19 03:10 06/26/19 03:30 Glucose (Fingerstick) 98 mg/dL (70-99) Sodium Level 146 mmol/L (136-145) Potassium Level 3.4 mmol/L (3.5-5.1) Chloride Level 113 mmol/L (98-107) Carbon Dioxide Level 24 mmol/L (21-32) Anion Gap 9 (6-14) Blood Urea Nitrogen 16 mg/dL (8-26) Creatinine 1.5 mg/dL (0.7-1.3) Estimated GFR (Cockcroft-Gault) 45.7 BUN/Creatinine Ratio 11 (6-20) Glucose Level 102 mg/dL (70-99) Calcium Level 9.1 mg/dL (8.5-10.1) Total Bilirubin 0.6 mg/dL (0.2-1.0) Aspartate Amino Transf (AST/SGOT) 24 U/L (15-37) Alanine Aminotransferase (ALT/SGPT) 23 U/L (16-63) Alkaline Phosphatase 38 U/L (46-116) Total Protein 6.0 g/dL (6.4-8.2) Albumin 3.4 g/dL (3.4-5.0) Albumin/Globulin Ratio 1.3 (1.0-1.7) White Blood Count 5.9 x10^3/uL (4.0-11.0) Red Blood Count 4.27 x10^6/uL (4.30-5.70) Hemoglobin 12.9 g/dL (13.0-17.5) Hematocrit 38.4 % (39.0-53.0) Mean Corpuscular Volume 90 fL (79-100) Mean Corpuscular Hemoglobin 30 pg (25-35) Mean Corpuscular Hemoglobin Concent 34 g/dL (31-37) Red Cell Distribution Width 14.4 % (11.5-14.5) Platelet Count 202 x10^3/uL (140-400) Neutrophils (%) (Auto) 68 % (31-73) Lymphocytes (%) (Auto) 21 % (24-48) Monocytes (%) (Auto) 9 % (0-9) Eosinophils (%) (Auto) 2 % (0-3) Basophils (%) (Auto) 1 % (0-3) Neutrophils # (Auto) 4.0 x10^3/uL (1.8-7.7) Lymphocytes # (Auto) 1.2 x10^3/uL (1.0-4.8) Monocytes # (Auto) 0.5 x10^3/uL (0.0-1.1) Eosinophils # (Auto) 0.1 x10^3/uL (0.0-0.7) Basophils # (Auto) 0.1 x10^3/uL (0.0-0.2) Assessment and Plan Assessmemt and Plan Problems Medical Problems: (1) Overdose of drug Status: Acute Comment Review of Relevant I have reviewed the following items zachery (where applicable) has been applied. Labs Laboratory Tests Test 06/25/19 03:40 06/25/19 17:02 06/26/19 03:10 06/26/19 03:30 White Blood Count 5.0 x10^3/uL (4.0-11.0) 5.9 x10^3/uL (4.0-11.0) Red Blood Count 3.90 x10^6/uL (4.30-5.70) 4.27 x10^6/uL (4.30-5.70) Hemoglobin 11.9 g/dL (13.0-17.5) 12.9 g/dL (13.0-17.5) Hematocrit 35.5 % (39.0-53.0) 38.4 % (39.0-53.0) Mean Corpuscular Volume 91 fL (79-100) 90 fL (79-100) Mean Corpuscular Hemoglobin 31 pg (25-35) 30 pg (25-35) Mean Corpuscular Hemoglobin Concent 34 g/dL (31-37) 34 g/dL (31-37) Red Cell Distribution Width 14.6 % (11.5-14.5) 14.4 % (11.5-14.5) Platelet Count 170 x10^3/uL (140-400) 202 x10^3/uL (140-400) Neutrophils (%) (Auto) 62 % (31-73) 68 % (31-73) Lymphocytes (%) (Auto) 27 % (24-48) 21 % (24-48) Monocytes (%) (Auto) 8 % (0-9) 9 % (0-9) Eosinophils (%) (Auto) 2 % (0-3) 2 % (0-3) Basophils (%) (Auto) 1 % (0-3) 1 % (0-3) Neutrophils # (Auto) 3.1 x10^3/uL (1.8-7.7) 4.0 x10^3/uL (1.8-7.7) Lymphocytes # (Auto) 1.4 x10^3/uL (1.0-4.8) 1.2 x10^3/uL (1.0-4.8) Monocytes # (Auto) 0.4 x10^3/uL (0.0-1.1) 0.5 x10^3/uL (0.0-1.1) Eosinophils # (Auto) 0.1 x10^3/uL (0.0-0.7) 0.1 x10^3/uL (0.0-0.7) Basophils # (Auto) 0.0 x10^3/uL (0.0-0.2) 0.1 x10^3/uL (0.0-0.2) Sodium Level 147 mmol/L (136-145) 146 mmol/L (136-145) Potassium Level 3.7 mmol/L (3.5-5.1) 3.4 mmol/L (3.5-5.1) Chloride Level 114 mmol/L (98-107) 113 mmol/L (98-107) Carbon Dioxide Level 25 mmol/L (21-32) 24 mmol/L (21-32) Anion Gap 8 (6-14) 9 (6-14) Blood Urea Nitrogen 15 mg/dL (8-26) 16 mg/dL (8-26) Creatinine 1.5 mg/dL (0.7-1.3) 1.5 mg/dL (0.7-1.3) Estimated GFR (Cockcroft-Gault) 45.7 45.7 BUN/Creatinine Ratio 10 (6-20) 11 (6-20) Glucose Level 97 mg/dL (70-99) 102 mg/dL (70-99) Calcium Level 8.5 mg/dL (8.5-10.1) 9.1 mg/dL (8.5-10.1) Total Bilirubin 0.3 mg/dL (0.2-1.0) 0.6 mg/dL (0.2-1.0) Aspartate Amino Transf (AST/SGOT) 23 U/L (15-37) 24 U/L (15-37) Alanine Aminotransferase (ALT/SGPT) 26 U/L (16-63) 23 U/L (16-63) Alkaline Phosphatase 33 U/L (46-116) 38 U/L (46-116) Total Protein 5.4 g/dL (6.4-8.2) 6.0 g/dL (6.4-8.2) Albumin 3.1 g/dL (3.4-5.0) 3.4 g/dL (3.4-5.0) Albumin/Globulin Ratio 1.3 (1.0-1.7) 1.3 (1.0-1.7) Glucose (Fingerstick) 98 mg/dL (70-99) Laboratory Tests Test 06/25/19 17:02 06/26/19 03:10 06/26/19 03:30 Glucose (Fingerstick) 98 mg/dL (70-99) Sodium Level 146 mmol/L (136-145) Potassium Level 3.4 mmol/L (3.5-5.1) Chloride Level 113 mmol/L (98-107) Carbon Dioxide Level 24 mmol/L (21-32) Anion Gap 9 (6-14) Blood Urea Nitrogen 16 mg/dL (8-26) Creatinine 1.5 mg/dL (0.7-1.3) Estimated GFR (Cockcroft-Gault) 45.7 BUN/Creatinine Ratio 11 (6-20) Glucose Level 102 mg/dL (70-99) Calcium Level 9.1 mg/dL (8.5-10.1) Total Bilirubin 0.6 mg/dL (0.2-1.0) Aspartate Amino Transf (AST/SGOT) 24 U/L (15-37) Alanine Aminotransferase (ALT/SGPT) 23 U/L (16-63) Alkaline Phosphatase 38 U/L (46-116) Total Protein 6.0 g/dL (6.4-8.2) Albumin 3.4 g/dL (3.4-5.0) Albumin/Globulin Ratio 1.3 (1.0-1.7) White Blood Count 5.9 x10^3/uL (4.0-11.0) Red Blood Count 4.27 x10^6/uL (4.30-5.70) Hemoglobin 12.9 g/dL (13.0-17.5) Hematocrit 38.4 % (39.0-53.0) Mean Corpuscular Volume 90 fL (79-100) Mean Corpuscular Hemoglobin 30 pg (25-35) Mean Corpuscular Hemoglobin Concent 34 g/dL (31-37) Red Cell Distribution Width 14.4 % (11.5-14.5) Platelet Count 202 x10^3/uL (140-400) Neutrophils (%) (Auto) 68 % (31-73) Lymphocytes (%) (Auto) 21 % (24-48) Monocytes (%) (Auto) 9 % (0-9) Eosinophils (%) (Auto) 2 % (0-3) Basophils (%) (Auto) 1 % (0-3) Neutrophils # (Auto) 4.0 x10^3/uL (1.8-7.7) Lymphocytes # (Auto) 1.2 x10^3/uL (1.0-4.8) Monocytes # (Auto) 0.5 x10^3/uL (0.0-1.1) Eosinophils # (Auto) 0.1 x10^3/uL (0.0-0.7) Basophils # (Auto) 0.1 x10^3/uL (0.0-0.2) Medications Current Medications Sodium Chloride 1,000 ml @ 1,000 mls/hr 1X ONCE IV Last administered on 06/23/19at 21:10; Start 06/23/19 at 21:00; Stop 06/23/19 at 21:59; Status DC Ondansetron HCl (Zofran) 4 mg PRN Q8HRS PRN IV NAUSEA/VOMITING; Start 06/23/19 at 21:45; Stop 06/24/19 at 21:44; Status DC Sodium Chloride 1,000 ml @ 150 mls/hr Q6H40M IV Last administered on 06/24/19at 17:17; Start 06/23/19 at 21:45; Stop 06/24/19 at 21:44; Status DC Lidocaine (Lidoderm) 1 patch DAILY TD Last administered on 06/25/19 09:10; Start 06/24/19 at 09:00 Miscellaneous (Lidoderm Patch Removal) 1 ea QHS MC Last administered on 06/25/19at 20:53; Start 06/24/19 at 21:00 Atorvastatin Calcium (Lipitor) 40 mg QHS PO Last administered on 06/25/19at 20:53; Start 06/25/19 at 21:00 Tamsulosin HCl (Flomax) 0.4 mg DAILY PO ; Start 06/26/19 at 09:00 Fenofibrate (Lofibra) 134 mg DAILY PO Last administered on 06/25/19 14:08; Start 06/25/19 at 14:00 Lisinopril (Prinivil) 10 mg DAILY PO Last administered on 06/25/19at 14:08; Start 06/25/19 at 14:00 Hydralazine HCl (Apresoline Inj) 10 mg PRN Q4HRS PRN IVP ELEVATED BP, SEE COMMENTS Last administered on 06/25/19at 15:56; Start 06/25/19 at 14:00 Active Scripts Active Reported Fenofibrate (Fenofibrate Nanocrystallized) 145 Mg Tablet 1 Tab PO DAILY Flomax (Tamsulosin Hcl) 0.4 Mg Cap.er.24h 1 Cap PO DAILY Atorvastatin Calcium 40 Mg Tablet 1 Tab PO QHS Toprol Xl (Metoprolol Succinate) 50 Mg Tab.er.24h 50 Mg PO DAILY Trazodone Hcl 50 Mg Tablet 100 Mg PO HS PRN 30 Days Trazodone Hcl 50 Mg Tablet 50 Mg PO HS PRN 30 Days Vitals/I & O Vital Sign - Last 24 Hours 10/10/06/25/19 06/25/19 06/25/19 11:59 14:08 15:00 15:56 Temp 97.9 98.0 97.9 98.0 Pulse 64 63 65 61 Resp 18 18 B/P (MAP) 181/69 (106) 172/84 175/85 (115) 175/85 Pulse Ox 98 97 O2 Delivery Room Air Room Air 06/25/19 06/25/19 06/26/19 06/26/19 19:43 23:05 03:05 07:27 Temp 97.6 97.9 97.8 98.7 97.6 97.9 97.8 98.7 Pulse 60 62 62 76 Resp 20 20 19 16 B/P (MAP) 179/73 (108) 176/75 (108) 175/79 (111) 166/95 (118) Pulse Ox 98 97 98 95 O2 Delivery Room Air Room Air Room Air Room Air Intake and Output 06/25/19 06/25/19 06/26/19 14:59 22:59 06:59 Intake Total 950 ml 300 ml Output Total 551 ml 800 ml 800 ml Balance 399 ml -800 ml -500 ml FANTASMA CERDA MD Jun 26, 2019 08:06
[2019-06-26] MEDS: TAMSULOSIN 0.4 MG CAP.ER.24H. PO SCH (08:36)
[2019-06-26] MEDS: LISINOPRIL 10 MG TABLET PO SCH ×2 (08:36→16:20)
[2019-06-26] MEDS: FENOFIBRATE,MICRONIZED 134 MG CAPSULE PO SCH (08:36)
[2019-06-26] MEDS: LIDOCAINE (700MG/PATCH) PATCH. TD SCH (08:37)
[2019-06-26 11:15] VITALS: BP 172/92
[2019-06-26] MEDS: hydrALAZINE 20 MG/ML VIAL. IVP PRN (11:17)
--- NOTE | 2019-06-26 13:03 | NUR ---
SW consulted for possible placement. PT/OT notes reviewed. Pt lives at home with spouse and does not have Skilled needs. No other needs identified at this time.
[2019-06-26] MEDS: amLODIPine BESYLATE 5 MG TABLET PO SCH (13:04)
--- NOTE | 2019-06-26 13:16 | PDOC ---
PROGRESS NOTES History of Present Illness History of Present Illness discharge dx Ingestion //suicide attempt. took fifty 50 mg tablets of Trazodone as an attempt to harm himself. // may have dementia. Acute toxic metabiloic encephalopathy bradycardia morbid obesity major depression EEG is a borderline study for the awake, drowsy, and sleep states. No focal, lateralizing, specific epileptiform discharge or electrographic seizure is seen. d/w in room SW spoke with PAT team and pt is cleared and does not have SI. Pt is provided with community resources. No f/u needed. admitted. home medicines. Psychiatric assessment team evaluation. DVT prophylaxis. Full code. tele cardiology consult hold BB TTE TSH outpt mental health eval needed PT/OT 33 min pt exam, chart review d/c planning , > 50% of time spent with exam, chart review, pt care coordination Vitals Vitals Vital Signs Date Time Temp Pulse Resp B/P (MAP) Pulse Ox O2 Delivery O2 Flow Rate FiO2 06/26/19 13:04 66 172/92 06/26/19 11:15 98.7 18 96 Room Air 98.7 Physical Exam Physical Exam NECK: Supple, no JVD, no thyromegaly was noted. LUNGS: Clear to auscultation in all lung herrera without rhonchi or wheezing. HEART: RRR, S1, S2 present. Peripheral pulses intact, no obvious murmurs were noted. ABDOMEN: Soft, nontender. Positive bowel sounds no organomegaly, normal bowel sounds. EXTREMITIES: Without any cyanosis, clubbing, or edema. Pedal pulses intact, Homans sign is negative. NEUROLOGIC: Normal speech, normal tone. A & O x3, moves all extremities, no obvious focal deficits. PSYCHIATRIC: sad affect normal mood. Stable. SKIN: No ulcerations or rashes, good skin turgor, no jaundice. VASCULAR: Good capillary refill, neurovascular bundle appears to be intact. General: Alert, Oriented X3, Cooperative, No acute distress Heart: Regular rate, Normal S1 Lungs: Clear Abdomen: Normal bowel sounds, Soft, No tenderness, No hepatosplenomegaly Extremities: No clubbing, No cyanosis, No edema Skin: No rashes, No significant lesion Labs LABS Laboratory Tests Test 06/25/19 17:02 06/26/19 03:10 06/26/19 03:30 Glucose (Fingerstick) 98 mg/dL (70-99) Sodium Level 146 mmol/L (136-145) Potassium Level 3.4 mmol/L (3.5-5.1) Chloride Level 113 mmol/L (98-107) Carbon Dioxide Level 24 mmol/L (21-32) Anion Gap 9 (6-14) Blood Urea Nitrogen 16 mg/dL (8-26) Creatinine 1.5 mg/dL (0.7-1.3) Estimated GFR (Cockcroft-Gault) 45.7 BUN/Creatinine Ratio 11 (6-20) Glucose Level 102 mg/dL (70-99) Calcium Level 9.1 mg/dL (8.5-10.1) Total Bilirubin 0.6 mg/dL (0.2-1.0) Aspartate Amino Transf (AST/SGOT) 24 U/L (15-37) Alanine Aminotransferase (ALT/SGPT) 23 U/L (16-63) Alkaline Phosphatase 38 U/L (46-116) Total Protein 6.0 g/dL (6.4-8.2) Albumin 3.4 g/dL (3.4-5.0) Albumin/Globulin Ratio 1.3 (1.0-1.7) White Blood Count 5.9 x10^3/uL (4.0-11.0) Red Blood Count 4.27 x10^6/uL (4.30-5.70) Hemoglobin 12.9 g/dL (13.0-17.5) Hematocrit 38.4 % (39.0-53.0) Mean Corpuscular Volume 90 fL (79-100) Mean Corpuscular Hemoglobin 30 pg (25-35) Mean Corpuscular Hemoglobin Concent 34 g/dL (31-37) Red Cell Distribution Width 14.4 % (11.5-14.5) Platelet Count 202 x10^3/uL (140-400) Neutrophils (%) (Auto) 68 % (31-73) Lymphocytes (%) (Auto) 21 % (24-48) Monocytes (%) (Auto) 9 % (0-9) Eosinophils (%) (Auto) 2 % (0-3) Basophils (%) (Auto) 1 % (0-3) Neutrophils # (Auto) 4.0 x10^3/uL (1.8-7.7) Lymphocytes # (Auto) 1.2 x10^3/uL (1.0-4.8) Monocytes # (Auto) 0.5 x10^3/uL (0.0-1.1) Eosinophils # (Auto) 0.1 x10^3/uL (0.0-0.7) Basophils # (Auto) 0.1 x10^3/uL (0.0-0.2) Assessment and Plan Assessmemt and Plan Problems Medical Problems: (1) Overdose of drug Status: Acute Comment Review of Relevant I have reviewed the following items zachery (where applicable) has been applied. Labs Laboratory Tests Test 06/25/19 03:40 06/25/19 17:02 06/26/19 03:10 06/26/19 03:30 White Blood Count 5.0 x10^3/uL (4.0-11.0) 5.9 x10^3/uL (4.0-11.0) Red Blood Count 3.90 x10^6/uL (4.30-5.70) 4.27 x10^6/uL (4.30-5.70) Hemoglobin 11.9 g/dL (13.0-17.5) 12.9 g/dL (13.0-17.5) Hematocrit 35.5 % (39.0-53.0) 38.4 % (39.0-53.0) Mean Corpuscular Volume 91 fL (79-100) 90 fL (79-100) Mean Corpuscular Hemoglobin 31 pg (25-35) 30 pg (25-35) Mean Corpuscular Hemoglobin Concent 34 g/dL (31-37) 34 g/dL (31-37) Red Cell Distribution Width 14.6 % (11.5-14.5) 14.4 % (11.5-14.5) Platelet Count 170 x10^3/uL (140-400) 202 x10^3/uL (140-400) Neutrophils (%) (Auto) 62 % (31-73) 68 % (31-73) Lymphocytes (%) (Auto) 27 % (24-48) 21 % (24-48) Monocytes (%) (Auto) 8 % (0-9) 9 % (0-9) Eosinophils (%) (Auto) 2 % (0-3) 2 % (0-3) Basophils (%) (Auto) 1 % (0-3) 1 % (0-3) Neutrophils # (Auto) 3.1 x10^3/uL (1.8-7.7) 4.0 x10^3/uL (1.8-7.7) Lymphocytes # (Auto) 1.4 x10^3/uL (1.0-4.8) 1.2 x10^3/uL (1.0-4.8) Monocytes # (Auto) 0.4 x10^3/uL (0.0-1.1) 0.5 x10^3/uL (0.0-1.1) Eosinophils # (Auto) 0.1 x10^3/uL (0.0-0.7) 0.1 x10^3/uL (0.0-0.7) Basophils # (Auto) 0.0 x10^3/uL (0.0-0.2) 0.1 x10^3/uL (0.0-0.2) Sodium Level 147 mmol/L (136-145) 146 mmol/L (136-145) Potassium Level 3.7 mmol/L (3.5-5.1) 3.4 mmol/L (3.5-5.1) Chloride Level 114 mmol/L (98-107) 113 mmol/L (98-107) Carbon Dioxide Level 25 mmol/L (21-32) 24 mmol/L (21-32) Anion Gap 8 (6-14) 9 (6-14) Blood Urea Nitrogen 15 mg/dL (8-26) 16 mg/dL (8-26) Creatinine 1.5 mg/dL (0.7-1.3) 1.5 mg/dL (0.7-1.3) Estimated GFR (Cockcroft-Gault) 45.7 45.7 BUN/Creatinine Ratio 10 (6-20) 11 (6-20) Glucose Level 97 mg/dL (70-99) 102 mg/dL (70-99) Calcium Level 8.5 mg/dL (8.5-10.1) 9.1 mg/dL (8.5-10.1) Total Bilirubin 0.3 mg/dL (0.2-1.0) 0.6 mg/dL (0.2-1.0) Aspartate Amino Transf (AST/SGOT) 23 U/L (15-37) 24 U/L (15-37) Alanine Aminotransferase (ALT/SGPT) 26 U/L (16-63) 23 U/L (16-63) Alkaline Phosphatase 33 U/L (46-116) 38 U/L (46-116) Total Protein 5.4 g/dL (6.4-8.2) 6.0 g/dL (6.4-8.2) Albumin 3.1 g/dL (3.4-5.0) 3.4 g/dL (3.4-5.0) Albumin/Globulin Ratio 1.3 (1.0-1.7) 1.3 (1.0-1.7) Glucose (Fingerstick) 98 mg/dL (70-99) Laboratory Tests Test 06/25/19 17:02 06/26/19 03:10 06/26/19 03:30 Glucose (Fingerstick) 98 mg/dL (70-99) Sodium Level 146 mmol/L (136-145) Potassium Level 3.4 mmol/L (3.5-5.1) Chloride Level 113 mmol/L (98-107) Carbon Dioxide Level 24 mmol/L (21-32) Anion Gap 9 (6-14) Blood Urea Nitrogen 16 mg/dL (8-26) Creatinine 1.5 mg/dL (0.7-1.3) Estimated GFR (Cockcroft-Gault) 45.7 BUN/Creatinine Ratio 11 (6-20) Glucose Level 102 mg/dL (70-99) Calcium Level 9.1 mg/dL (8.5-10.1) Total Bilirubin 0.6 mg/dL (0.2-1.0) Aspartate Amino Transf (AST/SGOT) 24 U/L (15-37) Alanine Aminotransferase (ALT/SGPT) 23 U/L (16-63) Alkaline Phosphatase 38 U/L (46-116) Total Protein 6.0 g/dL (6.4-8.2) Albumin 3.4 g/dL (3.4-5.0) Albumin/Globulin Ratio 1.3 (1.0-1.7) White Blood Count 5.9 x10^3/uL (4.0-11.0) Red Blood Count 4.27 x10^6/uL (4.30-5.70) Hemoglobin 12.9 g/dL (13.0-17.5) Hematocrit 38.4 % (39.0-53.0) Mean Corpuscular Volume 90 fL (79-100) Mean Corpuscular Hemoglobin 30 pg (25-35) Mean Corpuscular Hemoglobin Concent 34 g/dL (31-37) Red Cell Distribution Width 14.4 % (11.5-14.5) Platelet Count 202 x10^3/uL (140-400) Neutrophils (%) (Auto) 68 % (31-73) Lymphocytes (%) (Auto) 21 % (24-48) Monocytes (%) (Auto) 9 % (0-9) Eosinophils (%) (Auto) 2 % (0-3) Basophils (%) (Auto) 1 % (0-3) Neutrophils # (Auto) 4.0 x10^3/uL (1.8-7.7) Lymphocytes # (Auto) 1.2 x10^3/uL (1.0-4.8) Monocytes # (Auto) 0.5 x10^3/uL (0.0-1.1) Eosinophils # (Auto) 0.1 x10^3/uL (0.0-0.7) Basophils # (Auto) 0.1 x10^3/uL (0.0-0.2) Medications Current Medications Sodium Chloride 1,000 ml @ 1,000 mls/hr 1X ONCE IV Last administered on 06/23/19at 21:10; Start 06/23/19 at 21:00; Stop 06/23/19 at 21:59; Status DC Ondansetron HCl (Zofran) 4 mg PRN Q8HRS PRN IV NAUSEA/VOMITING; Start 06/23/19 at 21:45; Stop 06/24/19 at 21:44; Status DC Sodium Chloride 1,000 ml @ 150 mls/hr Q6H40M IV Last administered on 06/24/19at 17:17; Start 06/23/19 at 21:45; Stop 06/24/19 at 21:44; Status DC Lidocaine (Lidoderm) 1 patch DAILY TD Last administered on 06/25/19 09:10; Start 06/24/19 at 09:00 Miscellaneous (Lidoderm Patch Removal) 1 ea QHS MC Last administered on 06/25/19 20:53; Start 06/24/19 at 21:00 Atorvastatin Calcium (Lipitor) 40 mg QHS PO Last administered on 06/25/19at 20:53; Start 06/25/19 at 21:00 Tamsulosin HCl (Flomax) 0.4 mg DAILY PO Last administered on 06/26/19at 08:36; Start 06/26/19 at 09:00 Fenofibrate (Lofibra) 134 mg DAILY PO Last administered on 06/26/19 08:36; Start 06/25/19 at 14:00 Lisinopril (Prinivil) 10 mg DAILY PO Last administered on 06/26/19at 08:36; Start 06/25/19 at 14:00; Stop 06/26/19 at 12:14; Status DC Hydralazine HCl (Apresoline Inj) 10 mg PRN Q4HRS PRN IVP ELEVATED BP, SEE COMMENTS Last administered on 06/26/19at 11:17; Start 06/25/19 at 14:00 Amlodipine Besylate (Norvasc) 5 mg DAILY PO Last administered on 06/26/19at 13:04; Start 06/26/19 at 12:15 Lisinopril (Prinivil) 10 mg [id number] PO ; Start 06/26/19 at 16:00 Active Scripts Active Reported Fenofibrate (Fenofibrate Nanocrystallized) 145 Mg Tablet 1 Tab PO DAILY Flomax (Tamsulosin Hcl) 0.4 Mg Cap.er.24h 1 Cap PO DAILY Atorvastatin Calcium 40 Mg Tablet 1 Tab PO QHS Toprol Xl (Metoprolol Succinate) 50 Mg Tab.er.24h 50 Mg PO DAILY Trazodone Hcl 50 Mg Tablet 100 Mg PO HS PRN 30 Days Trazodone Hcl 50 Mg Tablet 50 Mg PO HS PRN 30 Days Vitals/I & O Vital Sign - Last 24 Hours 06/25/19 06/25/19 06/25/19 06/25/19 14:08 15:00 15:56 19:43 Temp 98.0 97.6 98.0 97.6 Pulse 63 65 61 60 Resp 18 20 B/P (MAP) 172/84 175/85 (115) 175/85 179/73 (108) Pulse Ox 97 98 O2 Delivery Room Air Room Air 06/25/19 06/26/19 06/26/19 06/26/19 23:05 03:05 07:27 08:30 Temp 97.9 97.8 98.7 97.9 97.8 98.7 Pulse 62 62 76 Resp 20 19 16 B/P (MAP) 176/75 (108) 175/79 (111) 166/95 (118) Pulse Ox 97 98 95 O2 Delivery Room Air Room Air Room Air Room Air 06/26/19 06/26/19 06/26/19 06/26/19 08:36 11:15 11:17 13:04 Temp 98.7 98.7 Pulse 76 66 66 Resp 18 B/P (MAP) 166/95 172/92 (118) 172/92 172/92 Pulse Ox 96 O2 Delivery Room Air Intake and Output 06/25/19 06/25/19 06/26/19 15:00 23:00 07:00 Intake Total 950 ml 300 ml Output Total 551 ml 800 ml 800 ml Balance 399 ml -800 ml -500 ml FANTASMA CERDA MD Jun 26, 2019 13:16
[2019-06-26] MEDS ORDERED: amLODIPine BESYLATE 5 MG TABLET PO ONE (14:45)
[2019-06-26 14:46] VITALS: BP 172/89
--- NOTE | 2019-06-26 17:31 | PDOC ---
PROGRESS NOTES Assessment Assessment Drug overdose. Metabolic encephalopathy. Memory loss. Pseudobulbar palsy? Frequent crying spells. Dizziness. Vertigo. DM? HTN. Hypotension events. Cognitive function impairment. Depression. Anxiety. Obesity. RECOMMENDATIONS/PLAN: Treat medical disease. Further evaluation of cognitive function as outpatient base. Discussed with his in detail at bedside on 06/26/19. EEG on 06/25/19: Borderline study. HCT: No brain atrophy. HISTORY OF THE PRESENT ILLNESS: Patient is a 73-year-old male patient with some psychiatric problems was brought to the ER of [facility] by EMS secondary to an intentional overdose. EMS stated that the patient vomited in route. Per ER documentation, he took fifty 50 mg tablets of Trazodone as an attempt to harm himself. Patient denies any other medication ingestion.He stated he and his have been arguing a lot lately. His suspect that he may have dementia, but further evaluation needed to be in clinic as outpatient base at baseline normal status. PAST MEDICAL HISTORY: Depression and anxiety. Questionable dementia. PAST SURGERY HISTORY: No major surgery recently. ALLERGIES: NKDA FAMILY HISTORY: Diabetes. MEDICATIONS: Refer to [facility] SOCIAL HISTORY: Lives at home. Denies smoking, drinking, and illicit drug use. REVIEW OF SYSTEMS: Constitutional: No malnutrition, weight loss, cachexia. Head: No traumatic brain or head injury. Skin: No edema, or rash. Ear: No infection. Eyes: No vision loss or color blindness. Nose: No bleeding or purulent discharges. Hearing: Hearing decrease. Neck: No injury. Cardiac: HTN. Pulmonary: No COPD. GI: No GI ulcer, GI bleeding. Urinary/genital: No dysuria, incontinence, urinary retention. Endocrinologic: Obesity. Skeletomuscular: No muscular atrophy. Neurological: see HP. Psychiatric: Denies drug use/abuse. Otherwise, not [id number] review of systems. PHYSICAL EXAMINATION: General appearance is in subacute distress. HEENT: Normocephalic and nontraumatic. Eyes, nose, ears, and throat are unremarkable. Neck is supple. No lymphadenopathy. No crepitus. Cardiovascular: S1, S2, regular rate and rhythm. Pulmonary: Relative clear to auscultation bilaterally. Abdomen: Bowel sounds are positive. Extremities: No rash, lesions, or edema. No restriction of range of motion NEUROLOGICAL EXAMINATION: Awake. Oriented to time, place and person. PERRL. EOMI. CN: no focal findings. Muscle tone: within normal. Muscle strength: 5- DTR: 1-2 Plantar reflex: Neutral response bilaterally Gait: not examined in bed. Sensory exam: no abnormal findings. No acute cerebellar signs elicited. F-T-N test fine. Objective Objective Vital Signs Date Time Temp Pulse Resp B/P (MAP) Pulse Ox O2 Delivery O2 Flow Rate FiO2 06/26/19 16:20 76 172/89 06/26/19 14:46 98.5 18 95 Room Air 98.5 Intake and Output 06/26/19 07:00 Intake Total 1250 ml Output Total 2151 ml Balance -901 ml Intake Oral 750 ml IV Total 500 ml Output Urine Total 2151 ml Vitals Signs Vitals VS - Last 72 Hours, by Label Date Time Temp Pulse Resp B/P (MAP) Pulse Ox O2 Delivery O2 Flow Rate FiO2 06/26/19 16:20 76 172/89 06/26/19 16:20 76 172/89 06/26/19 14:46 98.5 76 18 172/89 (116) 95 Room Air 98.5 06/26/19 13:04 66 172/92 06/26/19 11:17 172/92 06/26/19 11:15 98.7 66 18 172/92 (118) 96 Room Air 98.7 06/26/19 08:36 76 166/95 06/26/19 08:30 Room Air 06/26/19 07:27 98.7 76 16 166/95 (118) 95 Room Air 98.7 06/26/19 03:05 97.8 62 19 175/79 (111) 98 Room Air 97.8 06/25/19 23:05 97.9 62 20 176/75 (108) 97 Room Air 97.9 06/25/19 19:43 97.6 60 20 179/73 (108) 98 Room Air 97.6 06/25/19 15:56 61 175/85 06/25/19 15:00 98.0 65 18 175/85 (115) 97 Room Air 98.0 06/25/19 14:08 63 172/84 06/25/19 11:59 97.9 64 18 181/69 (106) 98 Room Air 97.9 06/25/19 08:00 Room Air 06/25/19 07:00 97.6 51 18 92/74 (80) 96 Room Air 97.6 Laboratory Laboratory Laboratory Tests Test 06/26/19 03:10 06/26/19 03:30 Sodium Level 146 mmol/L (136-145) Potassium Level 3.4 mmol/L (3.5-5.1) Chloride Level 113 mmol/L (98-107) Carbon Dioxide Level 24 mmol/L (21-32) Anion Gap 9 (6-14) Blood Urea Nitrogen 16 mg/dL (8-26) Creatinine 1.5 mg/dL (0.7-1.3) Estimated GFR (Cockcroft-Gault) 45.7 BUN/Creatinine Ratio 11 (6-20) Glucose Level 102 mg/dL (70-99) Calcium Level 9.1 mg/dL (8.5-10.1) Total Bilirubin 0.6 mg/dL (0.2-1.0) Aspartate Amino Transf (AST/SGOT) 24 U/L (15-37) Alanine Aminotransferase (ALT/SGPT) 23 U/L (16-63) Alkaline Phosphatase 38 U/L (46-116) Total Protein 6.0 g/dL (6.4-8.2) Albumin 3.4 g/dL (3.4-5.0) Albumin/Globulin Ratio 1.3 (1.0-1.7) White Blood Count 5.9 x10^3/uL (4.0-11.0) Red Blood Count 4.27 x10^6/uL (4.30-5.70) Hemoglobin 12.9 g/dL (13.0-17.5) Hematocrit 38.4 % (39.0-53.0) Mean Corpuscular Volume 90 fL (79-100) Mean Corpuscular Hemoglobin 30 pg (25-35) Mean Corpuscular Hemoglobin Concent 34 g/dL (31-37) Red Cell Distribution Width 14.4 % (11.5-14.5) Platelet Count 202 x10^3/uL (140-400) Neutrophils (%) (Auto) 68 % (31-73) Lymphocytes (%) (Auto) 21 % (24-48) Monocytes (%) (Auto) 9 % (0-9) Eosinophils (%) (Auto) 2 % (0-3) Basophils (%) (Auto) 1 % (0-3) Neutrophils # (Auto) 4.0 x10^3/uL (1.8-7.7) Lymphocytes # (Auto) 1.2 x10^3/uL (1.0-4.8) Monocytes # (Auto) 0.5 x10^3/uL (0.0-1.1) Eosinophils # (Auto) 0.1 x10^3/uL (0.0-0.7) Basophils # (Auto) 0.1 x10^3/uL (0.0-0.2) Medication Medications Current Medications Amlodipine Besylate (Norvasc) 5 mg 1X ONCE PO Last administered on 06/26/19 16:20; Start 06/26/19 at 14:45; Stop 06/26/19 at 14:46; Status DC Amlodipine Besylate (Norvasc) 5 mg DAILY PO Last administered on 06/26/19 13:04; Start 06/26/19 at 12:15 Atorvastatin Calcium (Lipitor) 40 mg QHS PO Last administered on 06/25/19 20:53; Start 06/25/19 at 21:00 Lisinopril (Prinivil) 10 mg [id number] PO Last administered on 06/26/19 16:20; Start 06/26/19 at 16:00 Tamsulosin HCl (Flomax) 0.4 mg DAILY PO Last administered on 06/26/19 08:36; Start 06/26/19 at 09:00 Comment Review of Relevant I have reviewed the following items zachery (where applicable) has been applied. JAMIE GRIMALDO MD Jun 26, 2019 17:31
[2019-06-26 19:00] VITALS: BP 154/95
[2019-06-26] MEDS: HYDROcodone/APAP 5/325MG 1 TAB TABLET PO PRN (21:32)
[2019-06-26] MEDS: ATORVASTATIN CALCIUM 40 MG TABLET. PO SCH (21:32)
[2019-06-26] MEDS: PATCH REMOVAL. MC SCH (21:34)
[2019-06-26 23:05] VITALS: BP 141/79
[2019-06-27 02:49] VITALS: BP 120/79
[2019-06-27 03:42] LABS: BASO % 1 % (0-3); EOS # 0.1 x10^3/uL (0.0-0.7); EOS % 1 % (0-3); HEMATOCRIT 40.9 % (39.0-53.0); HEMOGLOBIN 13.6 g/dL (13.0-17.5); LYMPH % 18 % (24-48); MEAN CORPUSCULAR HEMOGLOBIN 30 pg (25-35); MEAN CORPUSCULAR HGB CONC 33 g/dL (31-37); MEAN CORPUSCULAR VOLUME 90 fL (79-100); MONO # 0.5 x10^3/uL (0.0-1.1); MONO % 8 % (0-9); NEUT # 4.2 x10^3/uL (1.8-7.7); NEUT % 72 % (31-73); PLATELET COUNT 211 x10^3/uL (140-400); RED BLOOD COUNT 4.53 x10^6/uL (4.30-5.70); RED CELL DISTRIBUTION WIDTH 14.2 % (11.5-14.5); WHITE BLOOD COUNT 5.9 x10^3/uL (4.0-11.0)
[2019-06-27 03:58] LABS: ALBUMIN 3.5 g/dL (3.4-5.0); ALBUMIN/GLOBULIN RATIO 1.2 (1.0-1.7); CALCIUM 8.9 mg/dL (8.5-10.1); CREATININE 1.3 mg/dL (0.7-1.3); POTASSIUM 3.3 mmol/L (3.5-5.1); TOTAL BILIRUBIN 0.9 mg/dL (0.2-1.0); TOTAL PROTEIN 6.4 g/dL (6.4-8.2)
[2019-06-27 07:00] VITALS: BP 178/84
[2019-06-27] MEDS: LIDOCAINE (700MG/PATCH) PATCH. TD SCH (09:00)
[2019-06-27] MEDS: LISINOPRIL 10 MG TABLET PO SCH ×2 (09:14→16:32)
[2019-06-27] MEDS: FENOFIBRATE,MICRONIZED 134 MG CAPSULE PO SCH (09:14)
[2019-06-27] MEDS: amLODIPine BESYLATE 5 MG TABLET PO SCH (09:15)
[2019-06-27] MEDS: TAMSULOSIN 0.4 MG CAP.ER.24H. PO SCH (09:15)
--- NOTE | 2019-06-27 09:26 | PDOC ---
PROGRESS NOTES History of Present Illness History of Present Illness discharge dx Ingestion //suicide attempt. took fifty 50 mg tablets of Trazodone as an attempt to harm himself. // may have dementia. Acute toxic metabiloic encephalopathy bradycardia morbid obesity major depression EEG is a borderline study for the awake, drowsy, and sleep states. No focal, lateralizing, specific epileptiform discharge or electrographic seizure is seen. UNCONTROLLED HTN HYPOKALEMIA ON REPLACEMENT d/w in room SW spoke with PAT team and pt is cleared and does not have SI. Pt is provided with community resources. No f/u needed. admitted. home medicines. Psychiatric assessment team evaluation. DVT prophylaxis. Full code. tele cardiology consult hold BB TTE TSH outpt mental health eval needed ABD SONO PT/OT INC NORVASC TO 10MG PO DAILY ADD HCTZ 12.5 MG PO DAILY IV HYDRALAZINE 10MG Q 4 HRS PRN BP SUPPORT 30 min pt exam, chart review d/c planning , > 50% of time spent with exam, chart review, pt care coordination Vitals Vitals Vital Signs Date Time Temp Pulse Resp B/P (MAP) Pulse Ox O2 Delivery O2 Flow Rate FiO2 06/27/19 09:15 68 178/84 06/27/19 07:00 98.0 18 98 Room Air 98.0 Physical Exam Physical Exam NECK: Supple, no JVD, no thyromegaly was noted. LUNGS: Clear to auscultation in all lung herrera without rhonchi or wheezing. HEART: RRR, S1, S2 present. Peripheral pulses intact, no obvious murmurs were noted. ABDOMEN: Soft, nontender. Positive bowel sounds no organomegaly, normal bowel sounds. EXTREMITIES: Without any cyanosis, clubbing, or edema. Pedal pulses intact, Homans sign is negative. NEUROLOGIC: Normal speech, normal tone. A & O x3, moves all extremities, no obvious focal deficits. PSYCHIATRIC: sad affect normal FLAT . Stable. SKIN: No ulcerations or rashes, good skin turgor, no jaundice. VASCULAR: Good capillary refill, neurovascular bundle appears to be intact. General: Alert, Oriented X3, Cooperative, No acute distress Heart: Regular rate, Normal S1 Lungs: Clear Abdomen: Normal bowel sounds, Soft, No tenderness, No hepatosplenomegaly Extremities: No clubbing, No cyanosis, No edema, No tenderness/swelling Skin: No rashes, No significant lesion Labs LABS Laboratory Tests Test 06/27/19 03:10 White Blood Count 5.9 x10^3/uL (4.0-11.0) Red Blood Count 4.53 x10^6/uL (4.30-5.70) Hemoglobin 13.6 g/dL (13.0-17.5) Hematocrit 40.9 % (39.0-53.0) Mean Corpuscular Volume 90 fL (79-100) Mean Corpuscular Hemoglobin 30 pg (25-35) Mean Corpuscular Hemoglobin Concent 33 g/dL (31-37) Red Cell Distribution Width 14.2 % (11.5-14.5) Platelet Count 211 x10^3/uL (140-400) Neutrophils (%) (Auto) 72 % (31-73) Lymphocytes (%) (Auto) 18 % (24-48) Monocytes (%) (Auto) 8 % (0-9) Eosinophils (%) (Auto) 1 % (0-3) Basophils (%) (Auto) 1 % (0-3) Neutrophils # (Auto) 4.2 x10^3/uL (1.8-7.7) Lymphocytes # (Auto) 1.0 x10^3/uL (1.0-4.8) Monocytes # (Auto) 0.5 x10^3/uL (0.0-1.1) Eosinophils # (Auto) 0.1 x10^3/uL (0.0-0.7) Basophils # (Auto) 0.0 x10^3/uL (0.0-0.2) Sodium Level 143 mmol/L (136-145) Potassium Level 3.3 mmol/L (3.5-5.1) Chloride Level 108 mmol/L (98-107) Carbon Dioxide Level 23 mmol/L (21-32) Anion Gap 12 (6-14) Blood Urea Nitrogen 14 mg/dL (8-26) Creatinine 1.3 mg/dL (0.7-1.3) Estimated GFR (Cockcroft-Gault) 54.0 BUN/Creatinine Ratio 11 (6-20) Glucose Level 102 mg/dL (70-99) Calcium Level 8.9 mg/dL (8.5-10.1) Total Bilirubin 0.9 mg/dL (0.2-1.0) Aspartate Amino Transf (AST/SGOT) 21 U/L (15-37) Alanine Aminotransferase (ALT/SGPT) 23 U/L (16-63) Alkaline Phosphatase 41 U/L (46-116) Total Protein 6.4 g/dL (6.4-8.2) Albumin 3.5 g/dL (3.4-5.0) Albumin/Globulin Ratio 1.2 (1.0-1.7) Assessment and Plan Assessmemt and Plan Problems Medical Problems: (1) Overdose of drug Status: Acute Comment Review of Relevant I have reviewed the following items zachery (where applicable) has been applied. Labs Laboratory Tests Test 06/25/19 17:02 06/26/19 03:10 06/26/19 03:30 06/27/19 03:10 Glucose (Fingerstick) 98 mg/dL (70-99) Sodium Level 146 mmol/L (136-145) 143 mmol/L (136-145) Potassium Level 3.4 mmol/L (3.5-5.1) 3.3 mmol/L (3.5-5.1) Chloride Level 113 mmol/L (98-107) 108 mmol/L (98-107) Carbon Dioxide Level 24 mmol/L (21-32) 23 mmol/L (21-32) Anion Gap 9 (6-14) 12 (6-14) Blood Urea Nitrogen 16 mg/dL (8-26) 14 mg/dL (8-26) Creatinine 1.5 mg/dL (0.7-1.3) 1.3 mg/dL (0.7-1.3) Estimated GFR (Cockcroft-Gault) 45.7 54.0 BUN/Creatinine Ratio 11 (6-20) 11 (6-20) Glucose Level 102 mg/dL (70-99) 102 mg/dL (70-99) Calcium Level 9.1 mg/dL (8.5-10.1) 8.9 mg/dL (8.5-10.1) Total Bilirubin 0.6 mg/dL (0.2-1.0) 0.9 mg/dL (0.2-1.0) Aspartate Amino Transf (AST/SGOT) 24 U/L (15-37) 21 U/L (15-37) Alanine Aminotransferase (ALT/SGPT) 23 U/L (16-63) 23 U/L (16-63) Alkaline Phosphatase 38 U/L (46-116) 41 U/L (46-116) Total Protein 6.0 g/dL (6.4-8.2) 6.4 g/dL (6.4-8.2) Albumin 3.4 g/dL (3.4-5.0) 3.5 g/dL (3.4-5.0) Albumin/Globulin Ratio 1.3 (1.0-1.7) 1.2 (1.0-1.7) White Blood Count 5.9 x10^3/uL (4.0-11.0) 5.9 x10^3/uL (4.0-11.0) Red Blood Count 4.27 x10^6/uL (4.30-5.70) 4.53 x10^6/uL (4.30-5.70) Hemoglobin 12.9 g/dL (13.0-17.5) 13.6 g/dL (13.0-17.5) Hematocrit 38.4 % (39.0-53.0) 40.9 % (39.0-53.0) Mean Corpuscular Volume 90 fL (79-100) 90 fL (79-100) Mean Corpuscular Hemoglobin 30 pg (25-35) 30 pg (25-35) Mean Corpuscular Hemoglobin Concent 34 g/dL (31-37) 33 g/dL (31-37) Red Cell Distribution Width 14.4 % (11.5-14.5) 14.2 % (11.5-14.5) Platelet Count 202 x10^3/uL (140-400) 211 x10^3/uL (140-400) Neutrophils (%) (Auto) 68 % (31-73) 72 % (31-73) Lymphocytes (%) (Auto) 21 % (24-48) 18 % (24-48) Monocytes (%) (Auto) 9 % (0-9) 8 % (0-9) Eosinophils (%) (Auto) 2 % (0-3) 1 % (0-3) Basophils (%) (Auto) 1 % (0-3) 1 % (0-3) Neutrophils # (Auto) 4.0 x10^3/uL (1.8-7.7) 4.2 x10^3/uL (1.8-7.7) Lymphocytes # (Auto) 1.2 x10^3/uL (1.0-4.8) 1.0 x10^3/uL (1.0-4.8) Monocytes # (Auto) 0.5 x10^3/uL (0.0-1.1) 0.5 x10^3/uL (0.0-1.1) Eosinophils # (Auto) 0.1 x10^3/uL (0.0-0.7) 0.1 x10^3/uL (0.0-0.7) Basophils # (Auto) 0.1 x10^3/uL (0.0-0.2) 0.0 x10^3/uL (0.0-0.2) Laboratory Tests Test 06/27/19 03:10 White Blood Count 5.9 x10^3/uL (4.0-11.0) Red Blood Count 4.53 x10^6/uL (4.30-5.70) Hemoglobin 13.6 g/dL (13.0-17.5) Hematocrit 40.9 % (39.0-53.0) Mean Corpuscular Volume 90 fL (79-100) Mean Corpuscular Hemoglobin 30 pg (25-35) Mean Corpuscular Hemoglobin Concent 33 g/dL (31-37) Red Cell Distribution Width 14.2 % (11.5-14.5) Platelet Count 211 x10^3/uL (140-400) Neutrophils (%) (Auto) 72 % (31-73) Lymphocytes (%) (Auto) 18 % (24-48) Monocytes (%) (Auto) 8 % (0-9) Eosinophils (%) (Auto) 1 % (0-3) Basophils (%) (Auto) 1 % (0-3) Neutrophils # (Auto) 4.2 x10^3/uL (1.8-7.7) Lymphocytes # (Auto) 1.0 x10^3/uL (1.0-4.8) Monocytes # (Auto) 0.5 x10^3/uL (0.0-1.1) Eosinophils # (Auto) 0.1 x10^3/uL (0.0-0.7) Basophils # (Auto) 0.0 x10^3/uL (0.0-0.2) Sodium Level 143 mmol/L (136-145) Potassium Level 3.3 mmol/L (3.5-5.1) Chloride Level 108 mmol/L (98-107) Carbon Dioxide Level 23 mmol/L (21-32) Anion Gap 12 (6-14) Blood Urea Nitrogen 14 mg/dL (8-26) Creatinine 1.3 mg/dL (0.7-1.3) Estimated GFR (Cockcroft-Gault) 54.0 BUN/Creatinine Ratio 11 (6-20) Glucose Level 102 mg/dL (70-99) Calcium Level 8.9 mg/dL (8.5-10.1) Total Bilirubin 0.9 mg/dL (0.2-1.0) Aspartate Amino Transf (AST/SGOT) 21 U/L (15-37) Alanine Aminotransferase (ALT/SGPT) 23 U/L (16-63) Alkaline Phosphatase 41 U/L (46-116) Total Protein 6.4 g/dL (6.4-8.2) Albumin 3.5 g/dL (3.4-5.0) Albumin/Globulin Ratio 1.2 (1.0-1.7) Medications Current Medications Sodium Chloride 1,000 ml @ 1,000 mls/hr 1X ONCE IV Last administered on 06/23/19at 21:10; Start 06/23/19 at 21:00; Stop 06/23/19 at 21:59; Status DC Ondansetron HCl (Zofran) 4 mg PRN Q8HRS PRN IV NAUSEA/VOMITING; Start 06/23/19 at 21:45; Stop 06/24/19 at 21:44; Status DC Sodium Chloride 1,000 ml @ 150 mls/hr Q6H40M IV Last administered on 06/24/19at 17:17; Start 06/23/19 at 21:45; Stop 06/24/19 at 21:44; Status DC Lidocaine (Lidoderm) 1 patch DAILY TD Last administered on 06/25/19at 09:10; Start 06/24/19 at 09:00 Miscellaneous (Lidoderm Patch Removal) 1 ea QHS MC Last administered on 06/25/19 20:53; Start 06/24/19 at 21:00 Atorvastatin Calcium (Lipitor) 40 mg QHS PO Last administered on 06/26/19 21:32; Start 06/25/19 at 21:00 Tamsulosin HCl (Flomax) 0.4 mg DAILY PO Last administered on 06/27/19 09:15; Start 06/26/19 at 09:00 Fenofibrate (Lofibra) 134 mg DAILY PO Last administered on 06/27/19 09:14; Start 06/25/19 at 14:00 Lisinopril (Prinivil) 10 mg DAILY PO Last administered on 06/26/19 08:36; Start 06/25/19 at 14:00; Stop 06/26/19 at 12:14; Status DC Hydralazine HCl (Apresoline Inj) 10 mg PRN Q4HRS PRN IVP ELEVATED BP, SEE COMM ENTS Last administered on 06/26/19 11:17; Start 06/25/19 at 14:00 Amlodipine Besylate (Norvasc) 5 mg DAILY PO Last administered on 06/27/19 09:15; Start 06/26/19 at 12:15 Lisinopril (Prinivil) 10 mg [id number] PO Last administered on 06/27/19 09:14; Start 06/26/19 at 16:00 Amlodipine Besylate (Norvasc) 5 mg 1X ONCE PO Last administered on 06/26/19 16:20; Start 06/26/19 at 14:45; Stop 06/26/19 at 14:46; Status DC Acetaminophen/ Hydrocodone Bitart (Lortab 5/325) 1 tab PRN Q4HRS PRN PO PAIN Last administered on 06/26/19 21:32; Start 06/26/19 at 20:45 Active Scripts Active Reported Fenofibrate (Fenofibrate Nanocrystallized) 145 Mg Tablet 1 Tab PO DAILY Flomax (Tamsulosin Hcl) 0.4 Mg Cap.er.24h 1 Cap PO DAILY Atorvastatin Calcium 40 Mg Tablet 1 Tab PO QHS Toprol Xl (Metoprolol Succinate) 50 Mg Tab.er.24h 50 Mg PO DAILY Trazodone Hcl 50 Mg Tablet 100 Mg PO HS PRN 30 Days Trazodone Hcl 50 Mg Tablet 50 Mg PO HS PRN 30 Days Vitals/I & O Vital Sign - Last 24 Hours 06/26/19 06/26/19 06/26/19 06/26/19 11:15 11:17 13:04 14:46 Temp 98.7 98.5 98.7 98.5 Pulse 66 66 76 Resp 18 18 B/P (MAP) 172/92 (118) 172/92 172/92 172/89 (116) Pulse Ox 96 95 O2 Delivery Room Air Room Air 06/26/19 06/26/19 06/26/19 06/26/19 16:20 16:20 19:00 20:00 Temp 98.6 98.6 Pulse 76 76 73 Resp 16 B/P (MAP) 172/89 172/89 154/95 (114) Pulse Ox 98 O2 Delivery Room Air Room Air 06/26/19 06/27/19 06/27/19 06/27/19 23:05 02:49 07:00 09:14 Temp 98.0 97.6 98.0 98.0 97.6 98.0 Pulse 73 80 68 68 Resp 16 18 18 B/P (MAP) 141/79 (99) 120/79 (93) 178/84 (115) 178/84 Pulse Ox 97 96 98 O2 Delivery Room Air Room Air Room Air 06/27/19 09:15 Pulse 68 B/P (MAP) 178/84 Intake and Output 06/26/19 06/26/19 06/27/19 15:00 23:00 07:00 Intake Total 0 ml Output Total 250 ml 250 ml 850 ml Balance -250 ml -250 ml -850 ml FANTASMA CERDA MD Jun 27, 2019 09:26
[2019-06-27] MEDS: amLODIPine BESYLATE 10 MG TABLET PO SCH (10:51)
[2019-06-27 11:00] VITALS: BP 154/73
[2019-06-27] MEDS: hydroCHLOROthiazide 12.5 MG CAPSULE PO SCH (11:45)
[2019-06-27] MEDS ORDERED: POTASSIUM CHLORIDE 20 MEQ TABLET.ER. PO ONE (11:45)
[2019-06-27 15:00] VITALS: BP 162/88
[2019-06-27 19:12] VITALS: BP 181/87
[2019-06-27] MEDS ORDERED: risperiDONE 0.25 MG TABLET. PO SCH (19:30)
[2019-06-27] MEDS: ATORVASTATIN CALCIUM 40 MG TABLET. PO SCH (20:55)
[2019-06-27] MEDS: hydrALAZINE 20 MG/ML VIAL. IVP PRN (20:55)
[2019-06-27] MEDS: HYDROcodone/APAP 5/325MG 1 TAB TABLET PO PRN (21:04)
[2019-06-27] MEDS ORDERED: risperiDONE 0.25 MG TABLET. PO ONE (21:30)
[2019-06-27] MEDS: PATCH REMOVAL. MC SCH (21:38)
[2019-06-27 22:15] LABS: BILIRUBIN,URINE NEGATIVE (NEG); CLARITY,URINE CLEAR; COLOR,URINE YELLOW; NITRITE,URINE NEGATIVE (NEG); PH,URINE 6.5; PROTEIN,URINE NEGATIVE (NEG-TRACE)
[2019-06-27 22:21] LABS: HYALINE CASTS, URINE FEW /HPF
[2019-06-27 22:22] LABS: BACTERIA,URINE 0 /HPF (0-FEW)
[2019-06-27 23:30] VITALS: BP 144/72
[2019-06-28] MEDS ORDERED: ONDANSETRON PF 4 MG/2 ML VIAL. IVP PRN (03:15)
[2019-06-28] MEDS: hydrALAZINE 20 MG/ML VIAL. IVP PRN (03:17)
[2019-06-28 03:19] VITALS: BP 177/88
[2019-06-28 04:20] LABS: BASO % 0 % (0-3); EOS % 1 % (0-3); HEMATOCRIT 41.4 % (39.0-53.0); HEMOGLOBIN 13.9 g/dL (13.0-17.5); LYMPH # 0.9 x10^3/uL (1.0-4.8); LYMPH % 17 % (24-48); MEAN CORPUSCULAR HEMOGLOBIN 30 pg (25-35); MEAN CORPUSCULAR HGB CONC 34 g/dL (31-37); MEAN CORPUSCULAR VOLUME 90 fL (79-100); MONO # 0.5 x10^3/uL (0.0-1.1); MONO % 9 % (0-9); NEUT % 72 % (31-73); PLATELET COUNT 203 x10^3/uL (140-400); RED BLOOD COUNT 4.63 x10^6/uL (4.30-5.70); RED CELL DISTRIBUTION WIDTH 14.1 % (11.5-14.5); WHITE BLOOD COUNT 5.5 x10^3/uL (4.0-11.0)
[2019-06-28 04:42] LABS: ALBUMIN 3.8 g/dL (3.4-5.0); ALBUMIN/GLOBULIN RATIO 1.3 (1.0-1.7); CALCIUM 9.2 mg/dL (8.5-10.1); CREATININE 1.2 mg/dL (0.7-1.3); GFR 59.2; POTASSIUM 3.2 mmol/L (3.5-5.1); TOTAL BILIRUBIN 1.2 mg/dL (0.2-1.0); TOTAL PROTEIN 6.8 g/dL (6.4-8.2)
[2019-06-28 07:10] VITALS: BP 140/77
[2019-06-28] MEDS ORDERED: POTASSIUM CHLORIDE 20 MEQ TABLET.ER. PO SCH (08:00)
--- NOTE | 2019-06-28 08:20 | RAD ---
ABDOMEN COMPLETE History: Abdominal pain, hypertension Comparison: None. Findings: Multiple sonographic images of the abdomen are submitted. Pancreas is poorly seen due to bowel gas. There is coarsening of hepatic echotexture. There are 2 hypoechoic foci of the liver, one in the left lobe about 1.8 cm x 2 cm x 1.2 cm and the other in the anterior right lobe about 2.2 x 2.2 x 1.9 cm. Right lobe of the liver measured 15.5 cm longitudinal. Abdominal aortic caliber is within normal limits up to about 2 cm at the mid segment. There is segmental visualization of the inferior vena cava. Right kidney measured 10.5 x 5.1 x 4.9 cm, no hydronephrosis. Common bile duct is considered within normal limits at 0.7 cm given patient's age and also given previous cholecystectomy. Impression: 1. There is hepatic steatosis. There are 2 hypoechoic foci of the liver likely due to cysts. 2. There has been cholecystectomy. Common bile duct is within normal limits given patient's age and cholecystectomy. Electronically signed by: Lawson Dos Santos MD (06/28/2019 8:17 AM) [facility]
[2019-06-28] MEDS: TAMSULOSIN 0.4 MG CAP.ER.24H. PO SCH (08:28)
[2019-06-28] MEDS: FENOFIBRATE,MICRONIZED 134 MG CAPSULE PO SCH (08:29)
[2019-06-28] MEDS: LISINOPRIL 10 MG TABLET PO SCH (08:29)
[2019-06-28] MEDS: amLODIPine BESYLATE 10 MG TABLET PO SCH (08:29)
[2019-06-28] MEDS: hydroCHLOROthiazide 12.5 MG CAPSULE PO SCH (08:30)
[2019-06-28] MEDS: LIDOCAINE (700MG/PATCH) PATCH. TD SCH (08:32)
--- NOTE | 2019-06-28 10:24 | PDOC ---
PROGRESS NOTES History of Present Illness History of Present Illness discharge dx Ingestion //suicide attempt. took fifty 50 mg tablets of Trazodone as an attempt to harm himself. // may have dementia. Acute toxic metabiloic encephalopathy, resolved bradycardia morbid obesity major depression EEG is a borderline study for the awake, drowsy, and sleep states. No focal, lateralizing, specific epileptiform discharge or electrographic seizure is seen. UNCONTROLLED HTN, improved HYPOKALEMIA ON REPLACEMENT hepatic steatosis. There are 2 hypoechoic foci of the liver likely due to cysts. d/w in room SW spoke with PAT team and pt is cleared and does not have SI. Pt is provided with community resources. admitted. home medicines. Psychiatric assessment team evaluation. , discussed DVT prophylaxis. Full code. tele cardiology consult hold BB TTE TSH outpt mental health eval needed ABD SONO PT/OT INC NORVASC TO 10MG PO DAILY ADD HCTZ 12.5 MG PO DAILY IV HYDRALAZINE 10MG Q 4 HRS PRN BP SUPPORT d/c trazadone, begin effexor 37.5 mg po daily, see psych MARISOL, pcp marisol 33 min pt exam, chart review d/c planning , > 50% of time spent with exam, chart review, pt care coordination Vitals Vitals Vital Signs Date Time Temp Pulse Resp B/P (MAP) Pulse Ox O2 Delivery O2 Flow Rate FiO2 06/28/19 08:29 93 140/77 06/28/19 07:10 97.9 20 96 Room Air 97.9 Physical Exam Physical Exam NECK: Supple, no JVD, no thyromegaly was noted. LUNGS: Clear to auscultation in all lung herrera without rhonchi or wheezing. HEART: RRR, S1, S2 present. Peripheral pulses intact, no obvious murmurs were noted. ABDOMEN: Soft, nontender. Positive bowel sounds no organomegaly, normal bowel sounds. EXTREMITIES: Without any cyanosis, clubbing, or edema. Pedal pulses intact, Homans sign is negative. NEUROLOGIC: Normal speech, normal tone. A & O x3, moves all extremities, no obvious focal deficits. PSYCHIATRIC: sad affect normal FLAT . Stable. SKIN: No ulcerations or rashes, good skin turgor, no jaundice. VASCULAR: Good capillary refill, neurovascular bundle appears to be intact. General: Alert, Oriented X3, Cooperative, No acute distress Heart: Regular rate, Normal S1, Normal S2 Lungs: Clear Abdomen: Normal bowel sounds, Soft, No tenderness, No hepatosplenomegaly Extremities: No clubbing, No cyanosis, No edema, No tenderness/swelling Skin: No rashes, No significant lesion Labs LABS ABDOMEN COMPLETE History: Abdominal pain, hypertension Comparison: None. Findings: Multiple sonographic images of the abdomen are submitted. Pancreas is poorly seen due to bowel gas. There is coarsening of hepatic echotexture. There are 2 hypoechoic foci of the liver, one in the left lobe about 1.8 cm x 2 cm x 1.2 cm and the other in the anterior right lobe about 2.2 x 2.2 x 1.9 cm. Right lobe of the liver measured 15.5 cm longitudinal. Abdominal aortic caliber is within normal limits up to about 2 cm at the mid segment. There is segmental visualization of the inferior vena cava. Right kidney measured 10.5 x 5.1 x 4.9 cm, no hydronephrosis. Common bile duct is considered within normal limits at 0.7 cm given patient's age and also given previous cholecystectomy. Impression: 1. There is hepatic steatosis. There are 2 hypoechoic foci of the liver likely due to cysts. 2. There has been cholecystectomy. Common bile duct is within normal limits given patient's age and cholecystectomy. Electronically signed by: Lawson Dos Santos MD (06/28/2019 8:17 AM) [facility] Laboratory Tests Test 06/27/19 21:00 06/28/19 03:55 Urine Collection Type Unknown Urine Color Yellow Urine Clarity Clear Urine pH 6.5 Urine Specific [place] 1.015 Urine Protein Negative mg/dL (NEG-TRACE) Urine Glucose (UA) Negative mg/dL (NEG) Urine Ketones (Stick) Negative mg/dL (NEG) Urine Blood Negative (NEG) Urine Nitrite Negative (NEG) Urine Bilirubin Negative (NEG) Urine Urobilinogen Dipstick 1.0 mg/dL (0.2 mg/dL) Urine Leukocyte Esterase Negative (NEG) Urine RBC 3-5 /HPF (0-2) Urine WBC 1-4 /HPF (0-4) Urine Bacteria 0 /HPF (0-FEW) Urine Hyaline Casts Few /HPF Urine Mucus Mod /LPF White Blood Count 5.5 x10^3/uL (4.0-11.0) Red Blood Count 4.63 x10^6/uL (4.30-5.70) Hemoglobin 13.9 g/dL (13.0-17.5) Hematocrit 41.4 % (39.0-53.0) Mean Corpuscular Volume 90 fL (79-100) Mean Corpuscular Hemoglobin 30 pg (25-35) Mean Corpuscular Hemoglobin Concent 34 g/dL (31-37) Red Cell Distribution Width 14.1 % (11.5-14.5) Platelet Count 203 x10^3/uL (140-400) Neutrophils (%) (Auto) 72 % (31-73) Lymphocytes (%) (Auto) 17 % (24-48) Monocytes (%) (Auto) 9 % (0-9) Eosinophils (%) (Auto) 1 % (0-3) Basophils (%) (Auto) 0 % (0-3) Neutrophils # (Auto) 4.0 x10^3/uL (1.8-7.7) Lymphocytes # (Auto) 0.9 x10^3/uL (1.0-4.8) Monocytes # (Auto) 0.5 x10^3/uL (0.0-1.1) Eosinophils # (Auto) 0.0 x10^3/uL (0.0-0.7) Basophils # (Auto) 0.0 x10^3/uL (0.0-0.2) Sodium Level 141 mmol/L (136-145) Potassium Level 3.2 mmol/L (3.5-5.1) Chloride Level 106 mmol/L (98-107) Carbon Dioxide Level 21 mmol/L (21-32) Anion Gap 14 (6-14) Blood Urea Nitrogen 17 mg/dL (8-26) Creatinine 1.2 mg/dL (0.7-1.3) Estimated GFR (Cockcroft-Gault) 59.2 BUN/Creatinine Ratio 14 (6-20) Glucose Level 112 mg/dL (70-99) Calcium Level 9.2 mg/dL (8.5-10.1) Total Bilirubin 1.2 mg/dL (0.2-1.0) Aspartate Amino Transf (AST/SGOT) 23 U/L (15-37) Alanine Aminotransferase (ALT/SGPT) 22 U/L (16-63) Alkaline Phosphatase 47 U/L (46-116) Total Protein 6.8 g/dL (6.4-8.2) Albumin 3.8 g/dL (3.4-5.0) Albumin/Globulin Ratio 1.3 (1.0-1.7) Assessment and Plan Assessmemt and Plan Problems Medical Problems: (1) Overdose of drug Status: Acute Comment Review of Relevant I have reviewed the following items zachery (where applicable) has been applied. Labs Laboratory Tests Test 06/27/19 03:10 06/27/19 21:00 06/28/19 03:55 White Blood Count 5.9 x10^3/uL (4.0-11.0) 5.5 x10^3/uL (4.0-11.0) Red Blood Count 4.53 x10^6/uL (4.30-5.70) 4.63 x10^6/uL (4.30-5.70) Hemoglobin 13.6 g/dL (13.0-17.5) 13.9 g/dL (13.0-17.5) Hematocrit 40.9 % (39.0-53.0) 41.4 % (39.0-53.0) Mean Corpuscular Volume 90 fL (79-100) 90 fL (79-100) Mean Corpuscular Hemoglobin 30 pg (25-35) 30 pg (25-35) Mean Corpuscular Hemoglobin Concent 33 g/dL (31-37) 34 g/dL (31-37) Red Cell Distribution Width 14.2 % (11.5-14.5) 14.1 % (11.5-14.5) Platelet Count 211 x10^3/uL (140-400) 203 x10^3/uL (140-400) Neutrophils (%) (Auto) 72 % (31-73) 72 % (31-73) Lymphocytes (%) (Auto) 18 % (24-48) 17 % (24-48) Monocytes (%) (Auto) 8 % (0-9) 9 % (0-9) Eosinophils (%) (Auto) 1 % (0-3) 1 % (0-3) Basophils (%) (Auto) 1 % (0-3) 0 % (0-3) Neutrophils # (Auto) 4.2 x10^3/uL (1.8-7.7) 4.0 x10^3/uL (1.8-7.7) Lymphocytes # (Auto) 1.0 x10^3/uL (1.0-4.8) 0.9 x10^3/uL (1.0-4.8) Monocytes # (Auto) 0.5 x10^3/uL (0.0-1.1) 0.5 x10^3/uL (0.0-1.1) Eosinophils # (Auto) 0.1 x10^3/uL (0.0-0.7) 0.0 x10^3/uL (0.0-0.7) Basophils # (Auto) 0.0 x10^3/uL (0.0-0.2) 0.0 x10^3/uL (0.0-0.2) Sodium Level 143 mmol/L (136-145) 141 mmol/L (136-145) Potassium Level 3.3 mmol/L (3.5-5.1) 3.2 mmol/L (3.5-5.1) Chloride Level 108 mmol/L (98-107) 106 mmol/L (98-107) Carbon Dioxide Level 23 mmol/L (21-32) 21 mmol/L (21-32) Anion Gap 12 (6-14) 14 (6-14) Blood Urea Nitrogen 14 mg/dL (8-26) 17 mg/dL (8-26) Creatinine 1.3 mg/dL (0.7-1.3) 1.2 mg/dL (0.7-1.3) Estimated GFR (Cockcroft-Gault) 54.0 59.2 BUN/Creatinine Ratio 11 (6-20) 14 (6-20) Glucose Level 102 mg/dL (70-99) 112 mg/dL (70-99) Calcium Level 8.9 mg/dL (8.5-10.1) 9.2 mg/dL (8.5-10.1) Total Bilirubin 0.9 mg/dL (0.2-1.0) 1.2 mg/dL (0.2-1.0) Aspartate Amino Transf (AST/SGOT) 21 U/L (15-37) 23 U/L (15-37) Alanine Aminotransferase (ALT/SGPT) 23 U/L (16-63) 22 U/L (16-63) Alkaline Phosphatase 41 U/L (46-116) 47 U/L (46-116) Total Protein 6.4 g/dL (6.4-8.2) 6.8 g/dL (6.4-8.2) Albumin 3.5 g/dL (3.4-5.0) 3.8 g/dL (3.4-5.0) Albumin/Globulin Ratio 1.2 (1.0-1.7) 1.3 (1.0-1.7) Urine Collection Type Unknown Urine Color Yellow Urine Clarity Clear Urine pH 6.5 Urine Specific [place] 1.015 Urine Protein Negative mg/dL (NEG-TRACE) Urine Glucose (UA) Negative mg/dL (NEG) Urine Ketones (Stick) Negative mg/dL (NEG) Urine Blood Negative (NEG) Urine Nitrite Negative (NEG) Urine Bilirubin Negative (NEG) Urine Urobilinogen Dipstick 1.0 mg/dL (0.2 mg/dL) Urine Leukocyte Esterase Negative (NEG) Urine RBC 3-5 /HPF (0-2) Urine WBC 1-4 /HPF (0-4) Urine Bacteria 0 /HPF (0-FEW) Urine Hyaline Casts Few /HPF Urine Mucus Mod /LPF Laboratory Tests Test 06/27/19 21:00 06/28/19 03:55 Urine Collection Type Unknown Urine Color Yellow Urine Clarity Clear Urine pH 6.5 Urine Specific [place] 1.015 Urine Protein Negative mg/dL (NEG-TRACE) Urine Glucose (UA) Negative mg/dL (NEG) Urine Ketones (Stick) Negative mg/dL (NEG) Urine Blood Negative (NEG) Urine Nitrite Negative (NEG) Urine Bilirubin Negative (NEG) Urine Urobilinogen Dipstick 1.0 mg/dL (0.2 mg/dL) Urine Leukocyte Esterase Negative (NEG) Urine RBC 3-5 /HPF (0-2) Urine WBC 1-4 /HPF (0-4) Urine Bacteria 0 /HPF (0-FEW) Urine Hyaline Casts Few /HPF Urine Mucus Mod /LPF White Blood Count 5.5 x10^3/uL (4.0-11.0) Red Blood Count 4.63 x10^6/uL (4.30-5.70) Hemoglobin 13.9 g/dL (13.0-17.5) Hematocrit 41.4 % (39.0-53.0) Mean Corpuscular Volume 90 fL (79-100) Mean Corpuscular Hemoglobin 30 pg (25-35) Mean Corpuscular Hemoglobin Concent 34 g/dL (31-37) Red Cell Distribution Width 14.1 % (11.5-14.5) Platelet Count 203 x10^3/uL (140-400) Neutrophils (%) (Auto) 72 % (31-73) Lymphocytes (%) (Auto) 17 % (24-48) Monocytes (%) (Auto) 9 % (0-9) Eosinophils (%) (Auto) 1 % (0-3) Basophils (%) (Auto) 0 % (0-3) Neutrophils # (Auto) 4.0 x10^3/uL (1.8-7.7) Lymphocytes # (Auto) 0.9 x10^3/uL (1.0-4.8) Monocytes # (Auto) 0.5 x10^3/uL (0.0-1.1) Eosinophils # (Auto) 0.0 x10^3/uL (0.0-0.7) Basophils # (Auto) 0.0 x10^3/uL (0.0-0.2) Sodium Level 141 mmol/L (136-145) Potassium Level 3.2 mmol/L (3.5-5.1) Chloride Level 106 mmol/L (98-107) Carbon Dioxide Level 21 mmol/L (21-32) Anion Gap 14 (6-14) Blood Urea Nitrogen 17 mg/dL (8-26) Creatinine 1.2 mg/dL (0.7-1.3) Estimated GFR (Cockcroft-Gault) 59.2 BUN/Creatinine Ratio 14 (6-20) Glucose Level 112 mg/dL (70-99) Calcium Level 9.2 mg/dL (8.5-10.1) Total Bilirubin 1.2 mg/dL (0.2-1.0) Aspartate Amino Transf (AST/SGOT) 23 U/L (15-37) Alanine Aminotransferase (ALT/SGPT) 22 U/L (16-63) Alkaline Phosphatase 47 U/L (46-116) Total Protein 6.8 g/dL (6.4-8.2) Albumin 3.8 g/dL (3.4-5.0) Albumin/Globulin Ratio 1.3 (1.0-1.7) Medications Current Medications Sodium Chloride 1,000 ml @ 1,000 mls/hr 1X ONCE IV Last administered on 06/23/19 21:10; Start 06/23/19 at 21:00; Stop 06/23/19 at 21:59; Status DC Ondansetron HCl (Zofran) 4 mg PRN Q8HRS PRN IV NAUSEA/VOMITING; Start 06/23/19 at 21:45; Stop 06/24/19 at 21:44; Status DC Sodium Chloride 1,000 ml @ 150 mls/hr Q6H40M IV Last administered on 06/24/19 17:17; Start 06/23/19 at 21:45; Stop 06/24/19 at 21:44; Status DC Lidocaine (Lidoderm) 1 patch DAILY TD Last administered on 06/25/19 09:10; Start 06/24/19 at 09:00 Miscellaneous (Lidoderm Patch Removal) 1 ea QHS MC Last administered on 06/25/19 20:53; Start 06/24/19 at 21:00 Atorvastatin Calcium (Lipitor) 40 mg QHS PO Last administered on 06/27/19 20:55; Start 06/25/19 at 21:00 Tamsulosin HCl (Flomax) 0.4 mg DAILY PO Last administered on 06/28/19 08:28; Start 06/26/19 at 09:00 Fenofibrate (Lofibra) 134 mg DAILY PO Last administered on 06/28/19 08:29; Start 06/25/19 at 14:00 Lisinopril (Prinivil) 10 mg DAILY PO Last administered on 06/26/19at 08:36; Start 06/25/19 at 14:00; Stop 06/26/19 at 12:14; Status DC Hydralazine HCl (Apresoline Inj) 10 mg PRN Q4HRS PRN IVP ELEVATED BP, SEE COMMENTS Last administered on 06/28/19at 03:17; Start 06/25/19 at 14:00 Amlodipine Besylate (Norvasc) 5 mg DAILY PO Last administered on 06/27/19 09:15; Start 06/26/19 at 12:15; Stop 06/27/19 at 09:26; Status DC Lisinopril (Prinivil) 10 mg [id number] PO Last administered on 06/28/19 08:29; Start 06/26/19 at 16:00 Amlodipine Besylate (Norvasc) 5 mg 1X ONCE PO Last administered on 06/26/19 16:20; Start 06/26/19 at 14:45; Stop 06/26/19 at 14:46; Status DC Acetaminophen/ Hydrocodone Bitart (Lortab 5/325) 1 tab PRN Q4HRS PRN PO PAIN Last administered on 06/27/19 21:04; Start 06/26/19 at 20:45 Amlodipine Besylate (Norvasc) 10 mg DAILY PO Last administered on 06/28/19 08:29; Start 06/27/19 at 09:30 Hydrochlorothiazide (Microzide) 12.5 mg DAILY PO Last administered on 06/28/19 08:30; Start 06/27/19 at 11:45 Potassium Chloride (Klor-Con) 40 meq 1X ONCE PO Last administered on 06/27/19 t 12:00; Start 06/27/19 at 11:45; Stop 06/27/19 at 11:46; Status DC Potassium Chloride (Klor-Con) 20 meq [id number] PO Last administered on 06/28/19 08:29; Start 06/28/19 at 08:00 Risperidone (RisperDAL) 0.5 mg 1X PO ; Start 06/27/19 at 19:30; Status Cancel Risperidone (RisperDAL) 0.5 mg 1X ONCE PO Last administered on 06/27/19 21:04; Start 06/27/19 at 21:30; Stop 06/27/19 at 21:31; Status DC Ondansetron HCl (Zofran) 4 mg PRN Q4HRS PRN IVP NAUSEA/VOMITING 1ST CHOICE Last administered on 06/28/19 03:16; Start 06/28/19 at 03:15 Active Scripts Active Reported Fenofibrate (Fenofibrate Nanocrystallized) 145 Mg Tablet 1 Tab PO DAILY Flomax (Tamsulosin Hcl) 0.4 Mg Cap.er.24h 1 Cap PO DAILY Atorvastatin Calcium 40 Mg Tablet 1 Tab PO QHS Toprol Xl (Metoprolol Succinate) 50 Mg Tab.er.24h 50 Mg PO DAILY Trazodone Hcl 50 Mg Tablet 100 Mg PO HS PRN 30 Days Trazodone Hcl 50 Mg Tablet 50 Mg PO HS PRN 30 Days Vitals/I & O Vital Sign - Last 24 Hours 06/27/19 06/27/19 06/27/19 06/27/19 10:51 11:00 15:00 16:32 Temp 97.9 97.2 97.9 97.2 Pulse 68 82 72 72 Resp 18 18 B/P (MAP) 178/84 154/73 (100) 162/88 (112) 162/88 Pulse Ox 97 97 O2 Delivery Room Air Room Air 06/27/19 06/27/19 06/27/19 06/27/19 19:12 20:00 20:55 23:30 Temp 98.1 97.5 98.1 97.5 Pulse 80 82 80 Resp 18 18 B/P (MAP) 181/87 (118) 181/87 144/72 (96) Pulse Ox 98 96 O2 Delivery Room Air Room Air Room Air 06/28/19 06/28/19 06/28/19 06/28/19 03:17 03:19 07:10 08:29 Temp 97.7 97.9 97.7 97.9 Pulse 82 85 93 93 Resp 20 20 B/P (MAP) 177/88 177/88 (117) 140/77 (98) 140/77 Pulse Ox 97 96 O2 Delivery Room Air Room Air 06/28/19 08:29 Pulse 93 B/P (MAP) 140/77 Intake and Output 06/27/19 06/27/19 06/28/19 14:59 22:59 06:59 Intake Total 220 ml Balance 220 ml FANTASMA CERDA MD Jun 28, 2019 10:24
[2019-06-28 10:51] VITALS: BP 169/74
[2019-06-28] MEDS ORDERED: VENLAFAXINE XR 37.5 MG CAP.ER.24H. PO SCH (12:00)
[2019-06-28] MEDS ORDERED: LISI10TA2 PO (12:13)
[2019-06-28] MEDS ORDERED: HYDR12.575 PO (12:13)
[2019-06-28] MEDS ORDERED: AMLO10TA8 PO (12:13)
[2019-06-28] MEDS ORDERED: VENL37.5 PO (12:13)
--- NOTE | 2019-06-28 12:15 | DISCH ---
DISCHARGE INSTRUCTIONS Condition on Discharge Condition on Discharge: Stable Activity After Discharge Activity Instructions for Disc: Activity as tolerated Lifting Instructions after Dis: No heavy lifting, No pulling or pushing Exercise Instruction after Dis: Walk 10 min, 3 x per day Driving Instructions after Dis: Do not drive Diet after Discharge Diet after Discharge: Cardiac Liquid Texture: Thin Liquid Checks after Discharge Checks after discharge: Check blood press - daily Contacting the DR. after DC Call your doctor for: If your condition worsens Warfarin Follow-Up Warfarin Follow UP: see pcp FANTASMA Kent MD Jun 28, 2019 12:15
--- NOTE | 2019-06-28 13:13 | NUR ---
pt was discharged home with self care. he was given four scripts to be filled , effexor,lisinopril, amlodipine, and hydrochlorothiazide). he was wheeled down to the main entrance where his was going to drive him home. Gideon Dubois RN
--- NOTE | 2019-06-29 11:24 | CARD ---
MR#: [id number] Date of Study: 06/25/2019 Ordering Physician: LISE SILVA, Referring Physician: LISE SILVA, Tech: Leonie Bro APPROVED REPORT EXAM: Two-dimensional and M-mode echocardiogram with Doppler and color Doppler. Other Information Quality : AverageHR: 63bpm Technically limited study due to supine patient INDICATION Hypertension/HCVD Bradycardia 2D DIMENSIONS RVDd1.9 (2.9-3.5cm)Left Atrium(2D)3.1 (1.6-4.0cm) IVSd1.0 (0.7-1.1cm)Aortic Root(2D)3.1 (2.0-3.7cm) LVDd4.9 (3.9-5.9cm)LVOT Diameter2.1 (1.8-2.4cm) PWd1.0 (0.7-1.1cm)LVDs3.8 (2.5-4.0cm) FS (%) 22.3 %SV50.5 ml LVEF(%)44.9 (>50%) Aortic Valve AoV Peak Tian.146.7cm/sAoV VTI29.6cm AO Peak GR.8.6mmHgLVOT Peak Tian.141.8cm/s LVOT VTI 30.03cmAO Mean GR.4mmHg JOCELYNE (VMAX)2.21ae3VKX (VTI)3.42cm2 Mitral Valve MV E Tnwoeupa95.3cm/sMV DECEL [id number] MV A Mxrzfhaa47.4cm/sMV RFX33ub E/A Ratio0.8MVA (PHT)3.23cm2 TDI E/Lateral E'8.6E/Medial E'10.2 Pulmonary Valve PV Peak Ukexgotv91.1cm/sPV Peak Grad.4mmHg Tricuspid Valve TR P. [id number]/sRAP [id number] TR Peak Gr.[id number] Pulmonary Vein S1 Pnayotsh46.1cm/sD2 Hegdhfbe63.7cm/s PVa [id number] LEFT VENTRICLE The left ventricle is normal size. There is borderline concentric left ventricular hypertrophy. The l eft ventricular systolic function is normal and the ejection fraction is within normal range. EF 55% There is normal LV segmental wall motion. Transmitral Doppler flow pattern is Grade I-abnormal relaxa tion pattern. RIGHT VENTRICLE The right ventricle is borderline dilated. There is normal right ventricular wall thickness. The righ t ventricular systolic function is normal. ATRIA The left atrium is borderline dilated. The right atrium size is normal. The interatrial septum is int act with no evidence for an atrial septal defect or patent foramen ovale as noted on 2-D or Doppler i maging. AORTIC VALVE The aortic valve is thickened but opens well. Doppler and Color Flow revealed no significant aortic r egurgitation. There is no significant aortic valvular stenosis. MITRAL VALVE The mitral valve is normal in structure and function. There is no evidence of mitral valve prolapse. There is no mitral valve stenosis. Doppler and Color-flow revealed trace mitral regurgitation. TRICUSPID VALVE The tricuspid valve is normal in structure and function. Doppler and Color Flow revealed trace tricus pid regurgitation with an estimated PAP of 18 mmHg. There is no tricuspid valve stenosis. PULMONIC VALVE The pulmonic valve is not well visualized. Doppler and Color Flow revealed no pulmonic valvular regur gitation. GREAT VESSELS The aortic root is normal in size. The IVC is normal in size and collapses >50% with inspiration. PERICARDIAL EFFUSION There is no evidence of significant pericardial effusion. Critical Notification Critical Value: No <Conclusion> The left ventricular systolic function is normal and the ejection fraction is within normal range. EF 55% There is normal LV segmental wall motion. Signed by : Michael Yi, Electronically Approved : 06/25/2019 14:03:45
--- NOTE | 2019-07-06 22:41 | PDOC3 ---
Discharge Summary Date of Admission: Jun 24, 2019 Date of Discharge: Jun 28, 2019 Follow-Up: 3-5 days Admitting Diagnosis comment: discharge dx Ingestion //suicide attempt. took fifty 50 mg tablets of Trazodone as an attempt to harm himself. // may have dementia. Acute toxic metabiloic encephalopathy, resolved bradycardia morbid obesity major depression EEG is a borderline study for the awake, drowsy, and sleep states. No focal, lateralizing, specific epileptiform discharge or electrographic seizure is seen. UNCONTROLLED HTN, improved HYPOKALEMIA ON REPLACEMENT hepatic steatosis. There are 2 hypoechoic foci of the liver likely due to cysts. d/w in room SW spoke with PAT team and pt is cleared and does not have SI. Pt is provided with community resources. admitted. home medicines. Psychiatric assessment team evaluation. , discussed DVT prophylaxis. Full code. tele cardiology consult hold BB TTE TSH outpt mental health eval needed ABD SONO PT/OT INC NORVASC TO 10MG PO DAILY ADD HCTZ 12.5 MG PO DAILY IV HYDRALAZINE 10MG Q 4 HRS PRN BP SUPPORT d/c trazadone, begin effexor 37.5 mg po daily, see psych MARISOL, pcp marisol 33 min pt exam, chart review d/c planning , > 50% of time spent with exam, chart review, pt care coordination Vitals Vitals Vital Signs Date Time Temp Pulse Resp B/P (MAP) Pulse Ox O2 Delivery O2 Flow Rate FiO2 06/28/19 08:29 93 140/77 06/28/19 07:10 97.9 20 96 Room Air 97.9 Physical Exam Physical Exam NECK: Supple, no JVD, no thyromegaly was noted. LUNGS: Clear to auscultation in all lung herrera without rhonchi or wheezing. HEART: RRR, S1, S2 present. Peripheral pulses intact, no obvious murmurs were noted. ABDOMEN: Soft, nontender. Positive bowel sounds no organomegaly, normal bowel sounds. EXTREMITIES: Without any cyanosis, clubbing, or edema. Pedal pulses intact, Homans sign is negative. NEUROLOGIC: Normal speech, normal tone. A & O x3, moves all extremities, no obvious focal deficits. PSYCHIATRIC: sad affect normal FLAT . Stable. SKIN: No ulcerations or rashes, good skin turgor, no jaundice. VASCULAR: Good capillary refill, neurovascular bundle appears to be intact. General: Alert, Oriented X3, Cooperative, No acute distress Heart: Regular rate, Normal S1, Normal S2 Lungs: Clear Abdomen: Normal bowel sounds, Soft, No tenderness, No hepatosplenomegaly Extremities: No clubbing, No cyanosis, No edema, No tenderness/swelling Skin: No rashes, No significant lesion FINAL DIAGNOSIS Problems Medical Problems: (1) Overdose of drug Status: Acute Brief Hospital Course Mr. Moser is a 73 old [sex] who presented with [drug overdose ] CONDITION AT DISCHARGE: Improved Discharge Medications Current Medications Sodium Chloride 1,000 ml @ 1,000 mls/hr 1X ONCE IV Last administered on 06/23/19 21:10; Start 06/23/19 at 21:00; Stop 06/23/19 at 21:59; Status DC Ondansetron HCl (Zofran) 4 mg PRN Q8HRS PRN IV NAUSEA/VOMITING; Start 06/23/19 at 21:45; Stop 06/24/19 at 21:44; Status DC Sodium Chloride 1,000 ml @ 150 mls/hr Q6H40M IV Last administered on 06/24/19at 17:17; Start 06/23/19 at 21:45; Stop 06/24/19 at 21:44; Status DC Lidocaine (Lidoderm) 1 patch DAILY TD Last administered on 06/25/19 09:10; Start 06/24/19 at 09:00; Stop 06/28/19 at 13:16; Status DC Miscellaneous (Lidoderm Patch Removal) 1 ea QHS MC Last administered on 06/25/19at 20:53; Start 06/24/19 at 21:00; Stop 06/28/19 at 13:16; Status DC Atorvastatin Calcium (Lipitor) 40 mg QHS PO Last administered on 06/27/19at 20:55; Start 06/25/19 at 21:00; Stop 06/28/19 at 13:16; Status DC Tamsulosin HCl (Flomax) 0.4 mg DAILY PO Last administered on 06/28/19 08:28; Start 06/26/19 at 09:00; Stop 06/28/19 at 13:16; Status DC Fenofibrate (Lofibra) 134 mg DAILY PO Last administered on 06/28/19 08:29; Start 06/25/19 at 14:00; Stop 06/28/19 at 13:16; Status DC Lisinopril (Prinivil) 10 mg DAILY PO Last administered on 06/26/19at 08:36; Start 06/25/19 at 14:00; Stop 06/26/19 at 12:14; Status DC Hydralazine HCl (Apresoline Inj) 10 mg PRN Q4HRS PRN IVP ELEVATED BP, SEE COMMENTS Last administered on 06/28/19at 03:17; Start 06/25/19 at 14:00; Stop 06/28/19 at 13:16; Status DC Amlodipine Besylate (Norvasc) 5 mg DAILY PO Last administered on 06/27/19 09:15; Start 06/26/19 at 12:15; Stop 06/27/19 at 09:26; Status DC Lisinopril (Prinivil) 10 mg [id number] PO Last administered on 06/28/19 08:29; Start 06/26/19 at 16:00; Stop 06/28/19 at 13:16; Status DC Amlodipine Besylate (Norvasc) 5 mg 1X ONCE PO Last administered on 06/26/19 16:20; Start 06/26/19 at 14:45; Stop 06/26/19 at 14:46; Status DC Acetaminophen/ Hydrocodone Bitart (Lortab 5/325) 1 tab PRN Q4HRS PRN PO PAIN Last administered on 06/27/19at 21:04; Start 06/26/19 at 20:45; Stop 06/28/19 at 13:16; Status DC Amlodipine Besylate (Norvasc) 10 mg DAILY PO Last administered on 06/28/19 08:29; Start 06/27/19 at 09:30; Stop 06/28/19 at 13:16; Status DC Hydrochlorothiazide (Microzide) 12.5 mg DAILY PO Last administered on 06/28/19 08:30; Start 06/27/19 at 11:45; Stop 06/28/19 at 13:16; Status DC Potassium Chloride (Klor-Con) 40 meq 1X ONCE PO Last administered on 10/12/19at 12:00; Start 06/27/19 at 11:45; Stop 06/27/19 at 11:46; Status DC Potassium Chloride (Klor-Con) 20 meq [id number] PO Last administered on 06/28/19at 08:29; Start 06/28/19 at 08:00; Stop 06/28/19 at 13:16; Status DC Risperidone (RisperDAL) 0.5 mg 1X PO ; Start 06/27/19 at 19:30; Status Cancel Risperidone (RisperDAL) 0.5 mg 1X ONCE PO Last administered on 06/27/19at 21:04; Start 06/27/19 at 21:30; Stop 06/27/19 at 21:31; Status DC Ondansetron HCl (Zofran) 4 mg PRN Q4HRS PRN IVP NAUSEA/VOMITING 1ST CHOICE Last administered on 06/28/19at 03:16; Start 06/28/19 at 03:15; Stop 06/28/19 at 13:16; Status DC Venlafaxine HCl (Effexor Xr) 37.5 mg DAILY PO Last administered on 06/28/19at 12:00; Start 06/28/19 at 12:00; Stop 06/28/19 at 13:16; Status DC Active Scripts Active Hydrochlorothiazide Capsule (Hydrochlorothiazide) 12.5 Mg Capsule 12.5 Mg PO DAILY 30 Days Effexor Xr (Venlafaxine Hcl) 37.5 Mg Cap.er.24h 37.5 Mg PO DAILY 30 Days Lisinopril 10 Mg Tablet 10 Mg PO [id number] 30 Days Amlodipine Besylate 10 Mg Tablet 10 Mg PO DAILY 30 Days Reported Fenofibrate (Fenofibrate Nanocrystallized) 145 Mg Tablet 1 Tab PO DAILY Flomax (Tamsulosin Hcl) 0.4 Mg Cap.er.24h 1 Cap PO DAILY Atorvastatin Calcium 40 Mg Tablet 1 Tab PO QHS Allergies Allergies Coded Allergies Type Severity Reaction Last Updated Verified No Known Drug Allergies 06/23/19 No Disposition/Orders: D/C to Home w/ HH FANTASMA CERDA MD Jul 06, 2019 22:41
== END 2019-06-28 13:15 | disposition home or self-care (01) | DRG 917 ==
LOC: ER 20:46 → 1 WEST ICU 21:30 → 6 SOUTH 06-24 15:50
PROVIDERS: ADMIT Internal Medicine; ATTEND Internal Medicine
DX: T43.212A Poisoning by selective serotonin and norepinephrine reuptake inhibitors, intentional self-harm, initial encounter (principal); G92 Toxic encephalopathy; E66.01 Morbid (severe) obesity due to excess calories; E78.5 Hyperlipidemia, unspecified; E87.6 Hypokalemia; F03.90 Unspecified dementia, unspecified severity, without behavioral disturbance, psychotic disturbance, mood disturbance, and anxiety; F32.9 Major depressive disorder, single episode, unspecified; F41.9 Anxiety disorder, unspecified; G47.33 Obstructive sleep apnea (adult) (pediatric); M19.90 Unspecified osteoarthritis, unspecified site; H91.92 Unspecified hearing loss, left ear; I10 Essential (primary) hypertension; I48.91 Unspecified atrial fibrillation; Z83.3 Family history of diabetes mellitus; Z68.31 Body mass index [BMI] 31.0-31.9, adult; Y92.89 Other specified places as the place of occurrence of the external cause
CPT/HCPCS: 36415; 70450; 76700; 80053; 80307; 81001; 82607; 82962; 83690; 83735; 84439; 84443; 85007; 85025; 93005; 93306; 95816; 96360; G0480; J0360; J2405; J7030; 97110; 99285-25; G0378